=== PATIENT | female | born 1955 | race Caucasian/White ===

== ENCOUNTER 2024-05-03 12:11 | Inpatient (IN) | payer MEDICARE ==
--- NOTE | 2024-05-03 12:16 | ERPHSYRPT ---
- History of Present Illness Time Seen by Provider: 05/03/24 12:15 Source: patient, EMS, old records Physician History: This is a morbidly obese 68-year-old white female patient who was brought to the emergency department by the paramedics secondary to increased bilateral lower extremity swelling and shortness of breath. I reviewed the [facility] chart as well as received independent, additional medical history from the paramedics. Last week, patient received 1 round packed red blood cells transfused for low hemoglobin. The source of the patient's bleed is unknown at this time. 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 Review of patient's medication list states the patient is on aspirin but I do not see anticoagulation therapy. I did review the CBC lab results dated 04/28/2024. At that time her hemoglobin was 6.9. Since that time she has received 2 units packed red blood cells as an outpatient. Patient denies abdominal pain. Patient denies chest pain. Patient denies hematemesis. Patient denies bright red blood per rectum or dark tarry stools or hematochezia. Patient denies hematuria Timing/Duration: week(s) (1), worse Severity: moderate Modifying Factors: Improves With: nothing Associated Symptoms: shortness of breath, other (Complaint includes bilateral lower extremity swelling and shortness of breath), No cough, No chest pain, No fever Allergies/Adverse Reactions: acetaminophen [From Tylenol] Allergy (Verified 05/03/24 12:16) codeine Allergy (Verified 05/03/24 12:16) ibuprofen Allergy (Verified 05/03/24 12:16) Penicillins Allergy (Verified 05/03/24 12:16) Sulfa (Sulfonamide Antibiotics) Allergy (Verified 05/03/24 12:16) Home Medications: Albuterol 2.5 mg/3 ml Neb [Proventil 2.5 mg/3 ml Neb] 2.5 mg IH Q2H PRN PRN 04/29/24 [History] Albuterol 2.5 mg/3 ml Neb [Proventil 2.5 mg/3 ml Neb] 2.5 mg IH Q6H PRN PRN 04/29/24 [History] Amiodarone HCl 200 mg [Cordarone 200 MG] 200 mg PO BID 04/29/24 [History] Aspirin 325 mg PO DAILY 04/29/24 [History] Atorvastatin Calcium 40 mg PO HS 04/29/24 [History] Diazepam [Valium] 2 mg PO BID 04/29/24 [History] Famotidine 20 mg PO BID 04/29/24 [History] Fluticasone/Salmeterol 230/21* [Advair Hfa 230/21 Mcg MDI] 2 puff IH BIDRT [History] Insulin Lispro [Humalog] 100 unit SQ UD 04/29/24 [History] Levothyroxine Sodium 100 Mcg [Synthroid 100 Mcg] 100 mcg PO DAILY 04/29/24 [History] Metoprolol Succinate 25 mg Xl* [Toprol-Xl 25MG Tablets] 25 mg PO DAILY 04/29/24 [History] Nitroglycerin 0.4 mg SL Q5MIN PRN MR X 3 PRN 04/29/24 [History] PANTOPRAZOLE 40 mg Tablet [Protonix 40MG Tablet] 40 mg PO QAM 04/29/24 [History] Sertraline HCl [Zoloft] 25 mg PO DAILY 04/29/24 [History] Sucralfate [Carafate] 1 gm PO ACHS 04/29/24 [History] Tiotropium [place] [Spiriva] 2.5 mg IH DAILY 04/29/24 [History] glucagon HCL [Glucagon Emergency Kit] 1 mg IM UD PRN 04/29/24 [History] Travel Risk - International Travel Have you traveled outside of the country in past 3 weeks: No - Emerging Infectious Disease Are you exhibiting symptoms associated with any current EIDs: No - Review of Systems Constitutional: No Symptoms Eyes: No Symptoms Ears, Nose, & Throat: No Symptoms Respiratory: Dyspnea Cardiac: No Symptoms Abdominal/Gastrointestinal: No Symptoms Genitourinary Symptoms: No Symptoms Musculoskeletal: No Symptoms Skin: No Symptoms Neurological: No Symptoms Psychological: No Symptoms Endocrine: No Symptoms Hematologic/Lymphatic: No Symptoms Immunological/Allergic: No Symptoms All Other Systems: Reviewed and Negative - Past Medical History Pertinent Past Medical History: Yes Neurological History: No Pertinent History ENT History: No Pertinent History Cardiac History: Arrhythmia, Congestive Heart Failure, High Cholesterol, Hypertension, Myocardial Infarction ([place]) Respiratory History: Asthma, COPD Endocrine Medical History: Diabetes Type II, Hypothyroidism Musculoskeletal History: Rheumatoid Arthritis GI Medical History: No Pertinent History, GERD History: No Pertinent History Psycho-Social History: Anxiety Female Reproductive Disorders: No Pertinent History Other Medical History: rheumatic fever - Past Surgical History Past Surgical History: Yes Neuro Surgical History: No Pertinent History Gastrointestinal: Cholecystectomy Genitourinary: No Pertinent History Musculoskeletal: Orthopedic Surgery, Other Female Surgical History: Section Other Surgical History: both feet, both hands and one knee - Social History Smoking Status: Former smoker Drug Use: none - Nursing Vital Signs Nursing Vital Signs: Initial Vital Signs Temperature 97.6 F 05/03/24 12:15 Pulse Rate 120 H 05/03/24 12:15 Respiratory Rate 24 05/03/24 12:15 Blood Pressure 125/81 05/03/24 12:15 O2 Sat by Pulse Oximetry 99 05/03/24 12:15 Pain Scale Pain Intensity 0 - Physical Exam General Appearance: mild distress, alert, anxiety, obese Eye Exam: PERRL/EOMI, eyes nml inspection Ears, Nose, Throat Exam: dry mucous membranes, other Neck Exam: normal inspection (Lips appear pale), non-tender, supple, full range of motion Respiratory Exam: crackles/rales (Bilateral lung rogers mild) Cardiovascular Exam: tachycardia Gastrointestinal/Abdomen Exam: soft, normal bowel sounds, No tenderness Pelvic Exam: not done Rectal Exam: not done Back Exam: normal inspection, normal range of motion, No CVA tenderness, No vertebral tenderness Extremity Exam: normal inspection, normal range of motion, pelvis stable Neurologic Exam: alert, oriented x 3, cooperative, entry manager II-XII nml as tested Skin Exam: normal color, warm, dry Lymphatic Exam: No adenopathy SpO2 Interpretation: normal O2 Delivery: Room Air - Course Nursing assessment & vital signs reviewed: Yes EKG Interpreted by Me: RATE ([id number]), Sinus Tach, NORMAL AXIS, NORMAL INTERVALS, NORMAL QRS, NORMAL ST-T, Other (QTc is 489. No comparison twelve-lead EKG available. I do not appreciate acute ischemia on this twelve-lead EKG.) Ordered Tests: Active Orders 24 hr Category Date Time Status Economic History Teacher STAT Care 05/03/24 12:24 Active EKG-ER Only STAT Care 05/03/24 12:23 Active IV Insertion STAT Care 05/03/24 12:23 Active Oxygen-ED Only Nasal Cannula 2 lpm Care 05/03/24 12:30 Active Pulse Oximetry (ED) STAT Care 05/03/24 12:23 Active CHEST 1 VIEW (PORTABLE) Stat Exams 05/03/24 12:24 Completed CBC W DIFF Stat Lab 05/03/24 12:23 Completed CMP Stat Lab 05/03/24 13:14 Completed MAGNESIUM Stat Lab 05/03/24 13:14 Completed NT PRO BNPII Stat Lab 05/03/24 13:14 Completed Occult Blood-Fecal Screen (Diagnostic) [OB-FECAL SCREEN Lab 05/03/24 Ordered ] Stat PROTIME WITH INR Stat Lab 05/03/24 13:14 Completed TROPONIN Q4H Lab 05/03/24 13:14 Completed TROPONIN Q4H Lab 05/03/24 16:30 Ordered TROPONIN Q4H Lab 05/03/24 20:30 Ordered Medication Summary Discontinued Medications Generic Name Dose Route Start Last Admin Trade Name Freq PRN Reason Stop Dose Admin Furosemide 40 mg 05/03/24 15:22 05/03/24 15:30 Furosemide 40 Mg/4 Ml Vial IV 05/03/24 15:23 40 mg STAT ONE Administration Furosemide Confirm 05/03/24 15:28 Furosemide 40 Mg/4 Ml Vial Administered 05/03/24 15:29 Dose 40 mg .ROUTE .STK-MED ONE Lab/Rad Data: Laboratory Result Diagrams 05/03/24 12:23 05/03/24 13:14 Laboratory Results 05/03/24 05/03/24 05/03/24 Range/Units 13:14 13:14 13:14 WBC (3.98-10.04) x10^3/uL RBC (3.93-5.22) x10^6/uL Hgb (11.2-15.7) g/dL Hct (34.1-44.9) % MCV (79.4-94.8) fL MCH (25.6-32.2) pg MCHC (32.2-35.5) g/dL RDW (11.7-14.4) % Plt Count (182-369) x10^3/uL MPV (9.4-12.3) fL Gran % (34.0-71.1) % Immature Gran % (Auto) (0.001-0.429) % Nucleat RBC Rel Count (0.00-0.2) % Eos # (Auto) (0.04-0.36) x10^3/uL Immature Gran # (Auto) (0.001-0.031) x10^3u/L Absolute Lymphs (auto) (1.18-3.74) x10^3/uL Absolute Monos (auto) (0.24-0.86) x10^3/uL Absolute Nucleated RBC (0.00-0.012) x10^3u/L Lymphocytes % (19.3-51.7) % Monocytes % (4.7-12.5) % Eosinophils % (0.7-5.8) % Basophils % (0.1-1.2) % Absolute Granulocytes (1.56-6.13) x10^3/uL Basophils # (0.01-0.08) x10^3/uL PT 11.2 (9.4-12.5) SECONDS INR 1.03 (0.8-3.0) Sodium 144 (135-145) mmol/L Potassium 3.7 (3.5-5.1) mmol/L Chloride 102 (98-107) mmol/L Carbon Dioxide 35 H (22-30) mmol/L Anion Gap 11.0 (5-15) MEQ/L BUN 21 H (7-17) mg/dL Creatinine 0.69 (0.52-1.04) mg/dL Estimated GFR 95.1 ML/MIN Glucose 92 (74-106) mg/dL Calcium 9.3 (8.4-10.2) mg/dL Magnesium 2.0 (1.6-2.3) mg/dL Total Bilirubin 0.40 (0.2-1.3) mg/dL AST 20 (14-36) U/L ALT 21 (0-35) U/L Alkaline Phosphatase 92 (38-126) U/L Troponin I < 0.012 (0.000-0.033) ng/mL NT-Pro-B Natriuret Pep 5030 (<300) pg/mL Serum Total Protein 6.2 L (6.3-8.2) g/dL Albumin 3.6 (3.5-5.0) g/dL Slides for Path Review 05/03/24 Range/Units 12:23 WBC 10.9 H (3.98-10.04) x10^3/uL RBC 3.13 L (3.93-5.22) x10^6/uL Hgb 7.9 L (11.2-15.7) g/dL Hct 27.3 L (34.1-44.9) % MCV 87.2 (79.4-94.8) fL MCH 25.2 L (25.6-32.2) pg MCHC 28.9 L (32.2-35.5) g/dL RDW 21.3 H (11.7-14.4) % Plt Count 382 H (182-369) x10^3/uL MPV 8.9 L (9.4-12.3) fL Gran % 86.1 H (34.0-71.1) % Immature Gran % (Auto) 0.5 H (0.001-0.429) % Nucleat RBC Rel Count 0.0 (0.00-0.2) % Eos # (Auto) 0.07 (0.04-0.36) x10^3/uL Immature Gran # (Auto) 0.05 H (0.001-0.031) x10^3u/L Absolute Lymphs (auto) 0.91 L (1.18-3.74) x10^3/uL Absolute Monos (auto) 0.39 (0.24-0.86) x10^3/uL Absolute Nucleated RBC 0.00 (0.00-0.012) x10^3u/L Lymphocytes % 8.4 L (19.3-51.7) % Monocytes % 3.6 L (4.7-12.5) % Eosinophils % 0.6 L (0.7-5.8) % Basophils % 0.8 (0.1-1.2) % Absolute Granulocytes 9.34 H (1.56-6.13) x10^3/uL Basophils # 0.09 H (0.01-0.08) x10^3/uL PT (9.4-12.5) SECONDS INR (0.8-3.0) Sodium (135-145) mmol/L Potassium (3.5-5.1) mmol/L Chloride (98-107) mmol/L Carbon Dioxide (22-30) mmol/L Anion Gap (5-15) MEQ/L BUN (7-17) mg/dL Creatinine (0.52-1.04) mg/dL Estimated GFR ML/MIN Glucose (74-106) mg/dL Calcium (8.4-10.2) mg/dL Magnesium (1.6-2.3) mg/dL Total Bilirubin (0.2-1.3) mg/dL AST (14-36) U/L ALT (0-35) U/L Alkaline Phosphatase (38-126) U/L Troponin I (0.000-0.033) ng/mL NT-Pro-B Natriuret Pep (<300) pg/mL Serum Total Protein (6.3-8.2) g/dL Albumin (3.5-5.0) g/dL Slides for Path Review YES - Progress Progress: re-examined Progress Note: 05/03/24 12:50 My medical decision making and the assignment of moderate to high complexity of this patient's medical issue today is based on review of the patient's past medical history, review of patient's [facility] records, review of patient's outpatient lab results from 5 days ago, review the patient's medication list, review of patient drug allergy list, history present illness and physical findings on examination. The workup in this patient includes placement of intravenous line, CBC, CMP, magnesium level, twelve-lead EKG, chest x-ray, BNP, troponin level, occult blood and stool test, PT/INR 05/03/24 12:52 Differential diagnosis includes but is not limited to hypoalbuminemia, anemia, renal disease, CHF, myocardial infarction, 05/03/24 15:28 I interpreted the patient's laboratory data results. Patient is anemic but her hemoglobin today is 7.9 compared to 6.9 on 04/28/2024. Patient has a significan tly elevated BNP of 5030. Patient's renal function is normal as is her troponin level. Chest x-ray was interpreted by radiologist and I reviewed the impression. Impression states cardiomegaly with vascular congestion and small bilateral pleural effusions and superimposed pneumonia cannot be excluded. 05/03/24 15:[address] Blake, our telehospitalist economic developer at this time. I reviewed th e patient history, presenting complaint, physical findings, results of the laboratory, radiographic and EKG studies. We will admit this patient into the hospital and provide this patient with diuresis and workup for the patient's anemia. Discussed with : Shirley Counseled pt/family regarding: lab results, diagnosis, rad results Medical Desision Making - Independent Historian Additional History obtained from: [facility] nurse, Otolaryngology Rep/EMT - Discussion of managment Care discussed with:: hospitalist Reviewed:: Test results, Need for additional workup Agreed on:: decision to admit Will see patient: in hospital - Diagnostic Testing Diagnostic test were ordered, analyzed, and reviewed by me: Yes Radiological Interpretation: Reviewed by me, Teleradiologist Report - Risk of complications The pt has a high risk of morbidity or mortality based on: Decision regarding hospitilization or escalation of hosp level of care - Departure Departure Disposition: In-patient Admission Clinical Impression: CHF exacerbation, Anemia Condition: Fair Critical Care Time: No Referrals: ENVIVE,ENVIVE [Primary Care Provider] - Follow up/PCP as directed Instructions: Heart Failure
[2024-05-03 13:20] LABS: Absolute Neutrophil Ct (ANC) 9.34 x10^3/uL (1.56-6.13); BASOPHIL % 0.8 % (0.1-1.2); Basophil (Absolute #) 0.09 x10^3/uL (0.01-0.08); Eosinophil % 0.6 % (0.7-5.8); Eosinophil (Absolute #) 0.07 x10^3/uL (0.04-0.36); Hematocrit 27.3 % (34.1-44.9); Hemoglobin 7.9 g/dL (11.2-15.7); IMMATURE GRAN # 0.05 x10^3u/L (0.001-0.031); IMMATURE GRAN % 0.5 % (0.001-0.429); Lymphocyte (Absolute #) 0.91 x10^3/uL (1.18-3.74); Lymphocytes % 8.4 % (19.3-51.7); Mean Cell Volume 87.2 fL (79.4-94.8); Mean Corpuscular Hemoglobin 25.2 pg (25.6-32.2); Mean Corpuscular Hgb Concent. 28.9 g/dL (32.2-35.5); Mean Platelet Volume 8.9 fL (9.4-12.3); Monocyte (Absolute #) 0.39 x10^3/uL (0.24-0.86); Monocytes % 3.6 % (4.7-12.5); Neutrophil % 86.1 % (34.0-71.1); Platelet Count 382 x10^3/uL (182-369); Red Blood Count 3.13 x10^6/uL (3.93-5.22); Red Cell Distribution Width 21.3 % (11.7-14.4); White Blood Count 10.9 x10^3/uL (3.98-10.04)
--- NOTE | 2024-05-03 13:20 | XRAY ---
Indication: Short of breath. Comparison: None Portable chest demonstrates cardiomegaly, vascular congestion, and small bibasilar effusions/atelectasis favoring cardiac decompensation/CHF. Superimposed pneumonia not completely excluded. Bony thorax intact.
[2024-05-03 13:34] LABS: INR 1.03 (0.8-3.0); PROTIME 11.2 SECONDS (9.4-12.5)
[2024-05-03 13:40] LABS: Slide Review 1 YES
[2024-05-03 13:50] LABS: ALBUMIN 3.6 g/dL (3.5-5.0); BILIRUBIN,TOTAL 0.4 mg/dL (0.2-1.3); Calcium 9.3 mg/dL (8.4-10.2); Creatinine 1 0.69 mg/dL (0.52-1.04); EST GLOMERULAR FILTRATION RATE 95.1 ML/MIN; Potassium 3.7 mmol/L (3.5-5.1); Total Protein 6.2 g/dL (6.3-8.2)
[2024-05-03] MEDS ORDERED: Lasix 40 MG/4 ML ONE (15:28)
[2024-05-03] MEDS: Lasix 40 MG/4 ML IV ONE (15:30)
[2024-05-03] MEDS ORDERED: HUMULIN R SQ PRN ×2 (17:14→17:38)
[2024-05-03] MEDS ORDERED: Zofran 4 MG/2 ML VIAL IV PRN (17:14)
--- NOTE | 2024-05-03 17:33 | PCM.HP ---
History of Present Illness - Chief Complaint Chief Complaint: CHF, anemia Date: 05/03/24 History of Present Illness: is a 68 year old female with PMHX of oxygen dependent COPD (2 L oxygen via nasal cannula), obesity, hypothyroidism, insulin-dependent diabetes, hyperlipidemia, gastroesophageal reflux disease, anxiety issues, CHF, rheumatoid arthritis, morbid obesity, and arrhythmias. Today she was brought into the emergency department by the paramedics secondary to increased bilateral lower extremity swelling and shortness of breath. She reports her sxs have worsened over 48 hours but admits she has been like this for over a week. Last week, patient received 1 unit of packed red blood cells transfused for low hemoglobin OP. The source of the patient's low hgb is unknown at this time. Review of patient's medication list states the patient is on aspirin but no anticoagulation therapy. Lab results dated 04/28/2024- hemoglobin was 6.9. Since that time she has received 2 units packed red blood cells as an outpatient. She denies hematemesis, bright red blood per rectum, or dark tarry stools or hematochezia. She denies hematuria. In ER she received Lsix 40mg IV, humalog, and zofran. Will continue with IV lasix as she has +3 pitting edema. Echo o rdered She is on her baseline oxygen of 2LNC at 99%. Hgb is stable at 7.9 will continue to monitor. She continues to have some SOB. She denies Cp, Abd. pain, N/V/D. - Review of Systems Constitutional: No Fever, No Chills Eyes: No Symptoms Ears, Nose, & Throat: No Symptoms Respiratory: Short Of Breath, No Cough Cardiac: Edema (BLLE), No Chest Pain, No Syncope Abdominal/Gastrointestinal: No Abdominal Pain, No Nausea, No Vomiting, No Diarrhea Genitourinary Symptoms: No Dysuria Musculoskeletal: No Back Pain, No Neck Pain Skin: No Rash Neurological: No Dizziness, No Focal Weakness, No Sensory Changes Psychological: No Symptoms Endocrine: No Symptoms Hematologic/Lymphatic: No Symptoms Immunological/Allergic: No Symptoms Medications & Allergies Home Medications: Home Medication List Albuterol 2.5 mg/3 ml Neb [Proventil 2.5 mg/3 ml Neb] 2.5 mg IH Q2H PRN PRN 04/29/24 [History Confirmed 05/03/24] Albuterol 2.5 mg/3 ml Neb [Proventil 2.5 mg/3 ml Neb] 2.5 mg IH Q6H PRN PRN 04/29/24 [History Confirmed 05/03/24] Amiodarone HCl 200 mg [Cordarone 200 MG] 200 mg PO BID 04/29/24 [History Confirmed 05/03/24] Aspirin 325 mg PO DAILY 04/29/24 [History Confirmed 05/03/24] Atorvastatin Calcium 40 mg PO HS 04/29/24 [History Confirmed 05/03/24] Diazepam [Valium] 2 mg PO BID 04/29/24 [History Confirmed 05/03/24] Famotidine 20 mg PO BID 04/29/24 [History Confirmed 05/03/24] Fluticasone/Salmeterol 230/21* [Advair Hfa 230/21 Mcg MDI] 2 puff IH BIDRT 04/29/24 [History Confirmed 05/03/24] Insulin Lispro [Humalog] 100 unit SQ UD 04/29/24 [History Confirmed 05/03/24] Levothyroxine Sodium 100 Mcg [Synthroid 100 Mcg] 100 mcg PO DAILY 04/29/24 [History Confirmed 05/03/24] Metoprolol Succinate 25 mg Xl* [Toprol-Xl 25MG Tablets] 25 mg PO DAILY 04/29/24 [History Confirmed 05/03/24] Nitroglycerin 0.4 mg SL Q5MIN PRN MR X 3 PRN 04/29/24 [History Confirmed 05/03/24] PANTOPRAZOLE 40 mg Tablet [Protonix 40MG Tablet] 40 mg PO QAM 04/29/24 [History Confirmed 05/03/24] Sertraline HCl [Zoloft] 25 mg PO DAILY 04/29/24 [History Confirmed 05/03/24] Sucralfate [Carafate] 1 gm PO ACHS 04/29/24 [History Confirmed 05/03/24] Tiotropium [place] [Spiriva] 2.5 mg IH DAILY 04/29/24 [History Confirmed 05/03/24] glucagon HCL [Glucagon Emergency Kit] 1 mg IM UD PRN 04/29/24 [History Confirmed 05/03/24] Allergies/Adverse Reactions: Allergies Allergy/AdvReac Type Severity Reaction Status Date / Time acetaminophen [From Tylenol] Allergy Verified 05/03/24 12:16 codeine Allergy Verified 05/03/24 12:16 ibuprofen Allergy Verified 05/03/24 12:16 Penicillins Allergy Verified 05/03/24 12:16 Sulfa (Sulfonamide Allergy Verified 05/03/24 12:16 Antibiotics) - Past Medical History Past Medical History: Yes Neurological History: No Pertinent History ENT History: No Pertinent History Cardiac History: Arrhythmia, Congestive Heart Failure, High Cholesterol, Hypertension, Myocardial Infarction ([place]) Respiratory History: Asthma, COPD Endocrine Medical History: Diabetes Type II, Hypothyroidism Musculoskelatal History: Rheumatoid Arthritis GI Medical History: No Pertinent History, GERD History: No Pertinent History Pyscho-Social History: Anxiety Reproductive Disorders: No Pertinent History Comment: rheumatic fever - Past Surgical History Past Surgical History: Yes Neuro Surgical History: No Pertinent History GI Surgical History: Cholecystectomy Genitourinary Surgical Hx: No Pertinent History Musculskeletal Surgical Hx: Orthopedic Surgery, Other Female Surgical History: Section Other Surgical History: both feet, both hands and one knee - Social History Smoking Status: Former smoker Exposure to second hand smoke: No Alcohol: None Drug Use: none - Social Determinants of Health Will the patient participate in the screening: Yes Do you worry about a steady place to live?: No Do you have any problems with any of the following?: No known problems In the past 12 months,have you had to go without utilities?: No Have you or anyone in your house had to go without enough: No Transportation Issues: No Has anyone in your support network made you feel unsafe?: No - Physical Exam Vital Signs: Vital Signs - 24 hr Temp Pulse Resp BP BP Pulse Ox 05/03/24 16:00 128 H 35 H 129/89 78 L 05/03/24 15:33 117 H 22 145/88 99 05/03/24 15:30 117 H 21 100 05/03/24 15:20 117 H 20 05/03/24 15:10 117 H 18 93 L 05/03/24 15:00 117 H 14 100 05/03/24 14:50 116 H 16 98 05/03/24 14:40 117 H 17 98 05/03/24 14:30 117 H 18 99 05/03/24 14:20 117 H 17 99 05/03/24 14:10 118 H 19 99 05/03/24 14:00 120 H 17 99 05/03/24 13:50 119 H 19 99 05/03/24 13:40 119 H 17 100 05/03/24 13:30 119 H 19 100 05/03/24 13:20 119 H 17 05/03/24 13:10 118 H 22 93 L 05/03/24 13:00 120 H 19 100 05/03/24 12:50 121 H 19 99 05/03/24 12:49 120 H 23 100 05/03/24 12:31 99 05/03/24 12:15 97.6 F 120 H 24 125/81 99 General Appearance: no apparent distress, alert, obese Neurologic Exam: alert, oriented x 3, cooperative, normal mood/affect, nml cerebellar function, nml station & gait, sensation nml, No motor deficits Eye Exam: PERRL/EOMI, eyes nml inspection Ears, Nose, Throat Exam: normal ENT inspection, TMs normal, pharynx normal, moist mucous membranes Neck Exam: normal inspection, non-tender, supple, full range of motion Respiratory Exam: wheezing, No respiratory distress Cardiovascular Exam: regular rate/rhythm, normal heart sounds, normal peripheral pulses, tachycardia, edema (BLLE, + 3 pitting) Gastrointestinal/Abdomen Exam: soft, normal bowel sounds, No tenderness, No mass Back Exam: normal inspection, normal range of motion, No CVA tenderness, No vertebral tenderness Extremity Exam: normal inspection, normal range of motion, pelvis stable Skin Exam: normal color, warm, dry, No rash Lymphatic Exam: No adenopathy Results - Labs Lab/Micro Results: Lab Results-Last 24 Hours 05/03/24 05/03/24 05/03/24 Range/Units 12:23 13:14 13:14 WBC 10.9 H (3.98-10.04) x10^3/uL RBC 3.13 L (3.93-5.22) x10^6/uL Hgb 7.9 L (11.2-15.7) g/dL Hct 27.3 L (34.1-44.9) % MCV 87.2 (79.4-94.8) fL MCH 25.2 L (25.6-32.2) pg MCHC 28.9 L (32.2-35.5) g/dL RDW 21.3 H (11.7-14.4) % Plt Count 382 H (182-369) x10^3/uL MPV 8.9 L (9.4-12.3) fL Gran % 86.1 H (34.0-71.1) % Immature Gran % (Auto) 0.5 H (0.001-0.429) % Nucleat RBC Rel Count 0.0 (0.00-0.2) % Eos # (Auto) 0.07 (0.04-0.36) x10^3/uL Immature Gran # (Auto) 0.05 H (0.001-0.031) x10^3u/L Absolute Lymphs (auto) 0.91 L (1.18-3.74) x10^3/uL Absolute Monos (auto) 0.39 (0.24-0.86) x10^3/uL Absolute Nucleated RBC 0.00 (0.00-0.012) x10^3u/L Lymphocytes % 8.4 L (19.3-51.7) % Monocytes % 3.6 L (4.7-12.5) % Eosinophils % 0.6 L (0.7-5.8) % Basophils % 0.8 (0.1-1.2) % Absolute Granulocytes 9.34 H (1.56-6.13) x10^3/uL Basophils # 0.09 H (0.01-0.08) x10^3/uL PT 11.2 (9.4-12.5) SECONDS INR 1.03 (0.8-3.0) Sodium 144 (135-145) mmol/L Potassium 3.7 (3.5-5.1) mmol/L Chloride 102 (98-107) mmol/L Carbon Dioxide 35 H (22-30) mmol/L Anion Gap 11.0 (5-15) MEQ/L BUN 21 H (7-17) mg/dL Creatinine 0.69 (0.52-1.04) mg/dL Estimated GFR 95.1 ML/MIN Glucose 92 (74-106) mg/dL Calcium 9.3 (8.4-10.2) mg/dL Magnesium 2.0 (1.6-2.3) mg/dL Total Bilirubin 0.40 (0.2-1.3) mg/dL AST 20 (14-36) U/L ALT 21 (0-35) U/L Alkaline Phosphatase 92 (38-126) U/L Troponin I (0.000-0.033) ng/mL NT-Pro-B Natriuret Pep 5030 (<300) pg/mL Serum Total Protein 6.2 L (6.3-8.2) g/dL Albumin 3.6 (3.5-5.0) g/dL Slides for Path Review YES 05/03/24 05/03/24 Range/Units 13:14 16:25 WBC (3.98-10.04) x10^3/uL RBC (3.93-5.22) x10^6/uL Hgb (11.2-15.7) g/dL Hct (34.1-44.9) % MCV (79.4-94.8) fL MCH (25.6-32.2) pg MCHC (32.2-35.5) g/dL RDW (11.7-14.4) % Plt Count (182-369) x10^3/uL MPV (9.4-12.3) fL Gran % (34.0-71.1) % Immature Gran % (Auto) (0.001-0.429) % Nucleat RBC Rel Count (0.00-0.2) % Eos # (Auto) (0.04-0.36) x10^3/uL Immature Gran # (Auto) (0.001-0.031) x10^3u/L Absolute Lymphs (auto) (1.18-3.74) x10^3/uL Absolute Monos (auto) (0.24-0.86) x10^3/uL Absolute Nucleated RBC (0.00-0.012) x10^3u/L Lymphocytes % (19.3-51.7) % Monocytes % (4.7-12.5) % Eosinophils % (0.7-5.8) % Basophils % (0.1-1.2) % Absolute Granulocytes (1.56-6.13) x10^3/uL Basophils # (0.01-0.08) x10^3/uL PT (9.4-12.5) SECONDS INR (0.8-3.0) Sodium (135-145) mmol/L Potassium (3.5-5.1) mmol/L Chloride (98-107) mmol/L Carbon Dioxide (22-30) mmol/L Anion Gap (5-15) MEQ/L BUN (7-17) mg/dL Creatinine (0.52-1.04) mg/dL Estimated GFR ML/MIN Glucose (74-106) mg/dL Calcium (8.4-10.2) mg/dL Magnesium (1.6-2.3) mg/dL Total Bilirubin (0.2-1.3) mg/dL AST (14-36) U/L ALT (0-35) U/L Alkaline Phosphatase (38-126) U/L Troponin I < 0.012 < 0.012 (0.000-0.033) ng/mL NT-Pro-B Natriuret Pep (<300) pg/mL Serum Total Protein (6.3-8.2) g/dL Albumin (3.5-5.0) g/dL Slides for Path Review - Radiology Impressions Radiology Exams & Impressions: Radiology Procedures Category Date Time Status CHEST 1 VIEW (PORTABLE) Stat Exams 05/03/24 12:24 Completed - Other Procedures and Tests Respiratory Therapy 05/03/24 17:14 EKG REPEAT IN AM Oxygen Nasal Cannula 2 lpm Respiratory Therapy Consult ONCE Assessment/Plan (1) CHF exacerbation Current Visit: Yes Status: Acute Assessment & Plan: - Continue Lasix IV daily - Echo - EKG - Tele - on baseline O2 2lNC - daily weight - I&O's - Trop x3- trend, so far x2 negative - TSH - BNP 5030 - cardiology consult - elevate legs - consider TEDS - CXR: Portable chest demonstrates cardiomegaly, vascular congestion, and small bibasilar effusions/atelectasis favoring cardiac decompensation/CHF. Superimposed pneumonia not completely excluded. Bony thorax intact. Code(s): I50.9 - HEART FAILURE, UNSPECIFIED (2) Diabetes mellitus Current Visit: Yes Status: Acute Qualifiers: Diabetes mellitus type: type 2 Diabetes mellitus bilingual sales representative insulin use: with bilingual sales representative use Assessment & Plan: - A1C pending - accuchecks ac/hs - Humalog s/s Code(s): E11.9 - TYPE 2 DIABETES MELLITUS WITHOUT COMPLICATIONS (3) Anemia Current Visit: Yes Status: Acute Assessment & Plan: - Hgb 7.9 trend - anemia panel - Consider surgical consult for egd/ colonoscopy Code(s): D64.9 - ANEMIA, UNSPECIFIED (4) Morbid obesity with BMI of 40.0-44.9, adult Current Visit: Yes Status: Acute Assessment & Plan: - advised ADA diet and exercise control per cardiology recs Code(s): E66.01 - MORBID (SEVERE) OBESITY DUE TO EXCESS CALORIES; Z68.41 - BODY MASS INDEX [BMI] 40.0-44.9, ADULT (5) HTN (hypertension) Current Visit: Yes Status: Acute Assessment & Plan: - Continue beta charles - hold amiodarone d/t edema - BP stable- monitor Code(s): I10 - ESSENTIAL (PRIMARY) HYPERTENSION (6) Tachycardia Current Visit: Yes Status: Acute Assessment & Plan: - tele - 2;2 CHF exacerbation Code(s): R00.0 - TACHYCARDIA, UNSPECIFIED (7) Hypothyroidism Current Visit: Yes Status: Acute Assessment & Plan: - TSH - Continue Synthroid VTE: Lovenox PPI: Protonix Next of KIN: Paula Juarez [phone] D/C plan: 2-3 days Code status: Full Code(s): E03.9 - HYPOTHYROIDISM, UNSPECIFIED
[2024-05-03 18:05] LABS: Iron 34 ug/dL (37-170); Iron Saturation 9 % (20-39); TIBC 393 ug/dL (265-462)
[2024-05-03] MEDS ORDERED: DUONEB 0.5-3 MG/3 ml Neb IH ONE (18:35)
[2024-05-03] MEDS: DUONEB 0.5-3 MG/3 ml Neb IH SCH (18:39)
[2024-05-03] MEDS: Advair Hfa 230/21 Mcg COMMON CANISTER IH SCH (18:41)
[2024-05-03] MEDS: W ADAP IH SCH (18:44)
[2024-05-03] MEDS: FLUTICASONE IH SCH (18:44)
[2024-05-03] MEDS: SALMETEROL IH SCH (18:44)
[2024-05-03 19:04] LABS: Ferritin 43.6 ng/mL (11.1-264); Folate (Folic Acid) > 16.6 ng/mL (2.76 - >20); Vitamin B12 480 pg/mL (239-931)
[2024-05-03] MEDS: Pepcid 20 MG PO SCH (22:47)
[2024-05-03] MEDS: ZOCOR 20MG PO SCH (22:47)
[2024-05-04] MEDS: LIPITOR 40MG PO SCH (00:52)
[2024-05-04] MEDS: NON-FORMULARY ITEM (Diazepam [Valium] 2 MG Tablet) PO SCH (00:52)
[2024-05-04] MEDS ORDERED: NORCO 5/325 MG PO PRN (02:28)
[2024-05-04] MEDS: TYLENOL 325 MG PO PRN (02:31)
[2024-05-04 05:15] LABS: Absolute Neutrophil Ct (ANC) 6.58 x10^3/uL (1.56-6.13); Basophil (Absolute #) 0.08 x10^3/uL (0.01-0.08); Eosinophil % 1.3 % (0.7-5.8); Hematocrit 27.4 % (34.1-44.9); Hemoglobin 7.7 g/dL (11.2-15.7); IMMATURE GRAN # 0.03 x10^3u/L (0.001-0.031); IMMATURE GRAN % 0.4 % (0.001-0.429); Lymphocyte (Absolute #) 0.84 x10^3/uL (1.18-3.74); Lymphocytes % 10.5 % (19.3-51.7); Mean Cell Volume 88.7 fL (79.4-94.8); Mean Corpuscular Hemoglobin 24.9 pg (25.6-32.2); Mean Corpuscular Hgb Concent. 28.1 g/dL (32.2-35.5); Mean Platelet Volume 9.3 fL (9.4-12.3); Monocyte (Absolute #) 0.34 x10^3/uL (0.24-0.86); Monocytes % 4.3 % (4.7-12.5); NUCLEATED RBC # 0.02 x10^3u/L (0.00-0.012); NUCLEATED RBC % 0.3 % (0.00-0.2); Neutrophil % 82.5 % (34.0-71.1); Platelet Count 391 x10^3/uL (182-369); Red Blood Count 3.09 x10^6/uL (3.93-5.22); Red Cell Distribution Width 21.4 % (11.7-14.4)
[2024-05-04 05:39] LABS: ALBUMIN 3.3 g/dL (3.5-5.0); ANION GAP 7.2 MEQ/L (5-15); BILIRUBIN,TOTAL 0.4 mg/dL (0.2-1.3); Calcium 8.8 mg/dL (8.4-10.2); Creatinine 1 0.75 mg/dL (0.52-1.04); EST GLOMERULAR FILTRATION RATE 87.2 ML/MIN; Potassium 3.6 mmol/L (3.5-5.1); Total Protein 5.7 g/dL (6.3-8.2)
[2024-05-04 06:59] LABS: Slide Review 1 YES
[2024-05-04] MEDS: Carafate 1 GM PO SCH (07:11)
--- NOTE | 2024-05-04 09:56 | PCM.NOTE ---
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 Today she was brought into the emergency department by the paramedics secondary to increased bilateral lower extremity swelling and shortness of breath. She reports her sxs have worsened over 48 hours but admits she has been like this for over a week. Last week, patient received 1 unit of packed red blood cells transfused for low hemoglobin OP. The source of the patient's low hgb is unknown at this time. Review of patient's medication list states the patient is on aspirin but no anticoagulation therapy. Lab results dated 04/28/2024- hemoglobin was 6.9. Since that time she has received 2 units packed red blood cells as an outpatient. She denies hematemesis, bright red blood per rectum, or dark tarry stools or hematochezia. She denies hematuria. In ER she received Lsix 40mg IV, humalog, and zofran. Will continue with IV lasix as she has +3 pitting edema. Echo ordered She is on her baseline oxygen of 2LNC at 99%. Hgb is stable at 7.9 will continue to monitor. She continues to have some SOB. She denies Cp, Abd. pain, N/V/D. 05/04/24 Pt resting in the bed. Edema in BLLE has improved somewhat. PT to eval for weakness and for UNNA boots. TSH is elevated and she reports she has not had her meds changed or labs to check this in quite some time. She states she has been taking her synthroid as she has been in [facility] for rehab. Synthroid increased. Lung sounds and SOB has improved. She is on baseline 2lNC at 98%. Hgb is stable at 7.7. She is scheduled for an Echo today. Pt didn't have Valium last night as we do not carry the dose of medication she takes. She slept fine last night per nursing staff. Awaiting cardiology consult recs. Echo scheduled for today. Plan at d/c when sxs improved is to go back to rehab. She denies CP, SOB, abd. pain, N/V/D. - Review of Systems Constitutional: Weakness, No Fever, No Chills Eyes: No Symptoms Ears, Nose, & Throat: No Symptoms Respiratory: No Cough, No Short Of Breath Cardiac: Edema (BLLE), No Chest Pain, No Syncope Abdominal/Gastrointestinal: No Abdominal Pain, No Nausea, No Vomiting, No D iarrhea Genitourinary Symptoms: No Dysuria Musculoskeletal: No Back Pain, No Neck Pain Skin: No Rash Neurological: No Dizziness, No Focal Weakness, No Sensory Changes Psychological: No Symptoms Endocrine: No Symptoms Hematologic/Lymphatic: No Symptoms Immunological/Allergic: No Symptoms Objective Exam General Appearance: no apparent distress, alert, obese Neurologic Exam: alert, oriented x 3, cooperative, normal mood/affect, nml cerebellar function, sensation nml, No motor deficits Skin Exam: normal color, warm, dry Eye Exam: PERRL, EOMI, eyes nml inspection Ears, Nose, Throat Exam: normal ENT inspection, pharynx normal, moist mucous membranes Neck Exam: normal inspection, non-tender, supple, full range of motion Respiratory Exam: normal breath sounds, lungs clear, No respiratory distress Cardiovascular Exam: regular rate/rhythm, normal heart sounds, tachycardia, edema (+3 pitting edema BLLE) Gastrointestinal/Abdomen Exam: soft, No tenderness, No mass Extremity Exam: normal inspection, normal range of motion Back Exam: normal inspection, normal range of motion, No CVA tenderness, No vertebral tenderness Pelvic Exam: deferred Rectal Exam: deferred Objective Data Vital Signs: Vital Signs - 24 hr Temp Pulse Resp BP BP Pulse Ox 05/04/24 07:57 97.5 F 120 H 20 125/57 96 05/04/24 07:19 120 H 18 98 05/04/24 04:00 97.5 F 113 H 22 87/54 98 05/03/24 23:46 97.1 F 115 H 22 108/56 96 05/03/24 20:00 97.8 F 118 H 20 102/55 98 05/03/24 19:21 119 H 16 97 05/03/24 17:46 121 H 26 H 97 05/03/24 17:15 96.9 F 121 H 26 H 147/90 97 05/03/24 16:00 128 H 35 H 129/89 78 L 05/03/24 15:33 117 H 22 145/88 99 05/03/24 15:30 117 H 21 100 05/03/24 15:20 117 H 20 05/03/24 15:10 117 H 18 93 L 05/03/24 15:00 117 H 14 100 05/03/24 14:50 116 H 16 98 05/03/24 14:40 117 H 17 98 05/03/24 14:30 117 H 18 99 05/03/24 14:20 117 H 17 99 05/03/24 14:10 118 H 19 99 05/03/24 14:00 120 H 17 99 05/03/24 13:50 119 H 19 99 05/03/24 13:40 119 H 17 100 05/03/24 13:30 119 H 19 100 05/03/24 13:20 119 H 17 05/03/24 13:10 118 H 22 93 L 05/03/24 13:00 120 H 19 100 05/03/24 12:50 121 H 19 99 05/03/24 12:49 120 H 23 05/03/24 12:31 99 05/03/24 12:15 97.6 F 120 H 24 125/81 99 Pain Assessment - Last Documented Pain Intensity 2 Pain Scale Used 0-10 Pain Scale Intake and Output: Intake & Output 05/01/24 05/02/24 05/03/24 05/04/24 11:59 11:59 11:59 11:59 Intake Total 420 Output Total 1600 Balance -1180 Weight 101.3 kg Lab Results: Lab Results-Last 24 Hours 05/03/24 05/03/24 05/03/24 Range/Units 12:23 13:14 13:14 WBC 10.9 H (3.98-10.04) x10^3/uL RBC 3.13 L (3.93-5.22) x10^6/uL Hgb 7.9 L (11.2-15.7) g/dL Hct 27.3 L (34.1-44.9) % MCV 87.2 (79.4-94.8) fL MCH 25.2 L (25.6-32.2) pg MCHC 28.9 L (32.2-35.5) g/dL RDW 21.3 H (11.7-14.4) % Plt Count 382 H (182-369) x10^3/uL MPV 8.9 L (9.4-12.3) fL Gran % 86.1 H (34.0-71.1) % Immature Gran % (Auto) 0.5 H (0.001-0.429) % Nucleat RBC Rel Count 0.0 (0.00-0.2) % Eos # (Auto) 0.07 (0.04-0.36) x10^3/uL Immature Gran # (Auto) 0.05 H (0.001-0.031) x10^3u/L Absolute Lymphs (auto) 0.91 L (1.18-3.74) x10^3/uL Absolute Monos (auto) 0.39 (0.24-0.86) x10^3/uL Absolute Nucleated RBC 0.00 (0.00-0.012) x10^3u/L Lymphocytes % 8.4 L (19.3-51.7) % Monocytes % 3.6 L (4.7-12.5) % Eosinophils % 0.6 L (0.7-5.8) % Basophils % 0.8 (0.1-1.2) % Absolute Granulocytes 9.34 H (1.56-6.13) x10^3/uL Basophils # 0.09 H (0.01-0.08) x10^3/uL PT 11.2 (9.4-12.5) SECONDS INR 1.03 (0.8-3.0) Sodium 144 (135-145) mmol/L Potassium 3.7 (3.5-5.1) mmol/L Chloride 102 (98-107) mmol/L Carbon Dioxide 35 H (22-30) mmol/L Anion Gap 11.0 (5-15) MEQ/L BUN 21 H (7-17) mg/dL Creatinine 0.69 (0.52-1.04) mg/dL Estimated GFR 95.1 ML/MIN Glucose 92 (74-106) mg/dL POC Glucometer (74 to 106) mg/dL Hemoglobin A1c (4.5-6.0) % Calcium 9.3 (8.4-10.2) mg/dL Magnesium 2.0 (1.6-2.3) mg/dL Iron (37-170) ug/dL TIBC (265-462) ug/dL Iron Saturation (20-39) % Ferritin (11.1-264) ng/mL Total Bilirubin 0.40 (0.2-1.3) mg/dL AST 20 (14-36) U/L ALT 21 (0-35) U/L Alkaline Phosphatase 92 (38-126) U/L Troponin I (0.000-0.033) ng/mL NT-Pro-B Natriuret Pep 5030 (<300) pg/mL Serum Total Protein 6.2 L (6.3-8.2) g/dL Albumin 3.6 (3.5-5.0) g/dL Vitamin B12 (239-931) pg/mL Folic Acid (2.76 - >20) ng/mL TSH 3rd Generation (0.470-4.680) mIU/L Slides for Path Review YES 05/03/24 05/03/24 05/03/24 Range/Units 13:14 16:25 17:52 WBC (3.98-10.04) x10^3/uL RBC (3.93-5.22) x10^6/uL Hgb (11.2-15.7) g/dL Hct (34.1-44.9) % MCV (79.4-94.8) fL MCH (25.6-32.2) pg MCHC (32.2-35.5) g/dL RDW (11.7-14.4) % Plt Count (182-369) x10^3/uL MPV (9.4-12.3) fL Gran % (34.0-71.1) % Immature Gran % (Auto) (0.001-0.429) % Nucleat RBC Rel Count (0.00-0.2) % Eos # (Auto) (0.04-0.36) x10^3/uL Immature Gran # (Auto) (0.001-0.031) x10^3u/L Absolute Lymphs (auto) (1.18-3.74) x10^3/uL Absolute Monos (auto) (0.24-0.86) x10^3/uL Absolute Nucleated RBC (0.00-0.012) x10^3u/L Lymphocytes % (19.3-51.7) % Monocytes % (4.7-12.5) % Eosinophils % (0.7-5.8) % Basophils % (0.1-1.2) % Absolute Granulocytes (1.56-6.13) x10^3/uL Basophils # (0.01-0.08) x10^3/uL PT (9.4-12.5) SECONDS INR (0.8-3.0) Sodium (135-145) mmol/L Potassium (3.5-5.1) mmol/L Chloride (98-107) mmol/L Carbon Dioxide (22-30) mmol/L Anion Gap (5-15) MEQ/L BUN (7-17) mg/dL Creatinine (0.52-1.04) mg/dL Estimated GFR ML/MIN Glucose (74-106) mg/dL POC Glucometer (74 to 106) mg/dL Hemoglobin A1c 6.08 H (4.5-6.0) % Calcium (8.4-10.2) mg/dL Magnesium (1.6-2.3) mg/dL Iron (37-170) ug/dL TIBC (265-462) ug/dL Iron Saturation (20-39) % Ferritin (11.1-264) ng/mL Total Bilirubin (0.2-1.3) mg/dL AST (14-36) U/L ALT (0-35) U/L Alkaline Phosphatase (38-126) U/L Troponin I < 0.012 < 0.012 (0.000-0.033) ng/mL NT-Pro-B Natriuret Pep (<300) pg/mL Serum Total Protein (6.3-8.2) g/dL Albumin (3.5-5.0) g/dL Vitamin B12 (239-931) pg/mL Folic Acid (2.76 - >20) ng/mL TSH 3rd Generation (0.470-4.680) mIU/L Slides for Path Review 05/03/24 05/03/24 05/03/24 Range/Units 20:55 21:57 Unknown WBC (3.98-10.04) x10^3/uL RBC (3.93-5.22) x10^6/uL Hgb (11.2-15.7) g/dL Hct (34.1-44.9) % MCV (79.4-94.8) fL MCH (25.6-32.2) pg MCHC (32.2-35.5) g/dL RDW (11.7-14.4) % Plt Count (182-369) x10^3/uL MPV (9.4-12.3) fL Gran % (34.0-71.1) % Immature Gran % (Auto) (0.001-0.429) % Nucleat RBC Rel Count (0.00-0.2) % Eos # (Auto) (0.04-0.36) x10^3/uL Immature Gran # (Auto) (0.001-0.031) x10^3u/L Absolute Lymphs (auto) (1.18-3.74) x10^3/uL Absolute Monos (auto) (0.24-0.86) x10^3/uL Absolute Nucleated RBC (0.00-0.012) x10^3u/L Lymphocytes % (19.3-51.7) % Monocytes % (4.7-12.5) % Eosinophils % (0.7-5.8) % Basophils % (0.1-1.2) % Absolute Granulocytes (1.56-6.13) x10^3/uL Basophils # (0.01-0.08) x10^3/uL PT (9.4-12.5) SECONDS INR (0.8-3.0) Sodium (135-145) mmol/L Potassium (3.5-5.1) mmol/L Chloride (98-107) mmol/L Carbon Dioxide (22-30) mmol/L Anion Gap (5-15) MEQ/L BUN (7-17) mg/dL Creatinine (0.52-1.04) mg/dL Estimated GFR ML/MIN Glucose (74-106) mg/dL POC Glucometer 105 (74 to 106) mg/dL Hemoglobin A1c (4.5-6.0) % Calcium (8.4-10.2) mg/dL Magnesium (1.6-2.3) mg/dL Iron (37-170) ug/dL TIBC (265-462) ug/dL Iron Saturation (20-39) % Ferritin 43.6 (11.1-264) ng/mL Total Bilirubin (0.2-1.3) mg/dL AST (14-36) U/L ALT (0-35) U/L Alkaline Phosphatase (38-126) U/L Troponin I < 0.012 (0.000-0.033) ng/mL NT-Pro-B Natriuret Pep (<300) pg/mL Serum Total Protein (6.3-8.2) g/dL Albumin (3.5-5.0) g/dL Vitamin B12 480 (239-931) pg/mL Folic Acid > 16.6 (2.76 - >20) ng/mL TSH 3rd Generation (0.470-4.680) mIU/L Slides for Path Review 05/03/24 05/04/24 05/04/24 Range/Units Unknown 04:14 04:14 WBC 8.0 (3.98-10.04) x10^3/uL RBC 3.09 L (3.93-5.22) x10^6/uL Hgb 7.7 L (11.2-15.7) g/dL Hct 27.4 L (34.1-44.9) % MCV 88.7 (79.4-94.8) fL MCH 24.9 L (25.6-32.2) pg MCHC 28.1 L (32.2-35.5) g/dL RDW 21.4 H (11.7-14.4) % Plt Count 391 H (182-369) x10^3/uL MPV 9.3 L (9.4-12.3) fL Gran % 82.5 H (34.0-71.1) % Immature Gran % (Auto) 0.4 (0.001-0.429) % Nucleat RBC Rel Count 0.3 H (0.00-0.2) % Eos # (Auto) 0.10 (0.04-0.36) x10^3/uL Immature Gran # (Auto) 0.03 (0.001-0.031) x10^3u/L Absolute Lymphs (auto) 0.84 L (1.18-3.74) x10^3/uL Absolute Monos (auto) 0.34 (0.24-0.86) x10^3/uL Absolute Nucleated RBC 0.02 H (0.00-0.012) x10^3u/L Lymphocytes % 10.5 L (19.3-51.7) % Monocytes % 4.3 L (4.7-12.5) % Eosinophils % 1.3 (0.7-5.8) % Basophils % 1.0 (0.1-1.2) % Absolute Granulocytes 6.58 H (1.56-6.13) x10^3/uL Basophils # 0.08 (0.01-0.08) x10^3/uL PT (9.4-12.5) SECONDS INR (0.8-3.0) Sodium 141 (135-145) mmol/L Potassium 3.6 (3.5-5.1) mmol/L Chloride 100 (98-107) mmol/L Carbon Dioxide 37 H (22-30) mmol/L Anion Gap 7.2 (5-15) MEQ/L BUN 20 H (7-17) mg/dL Creatinine 0.75 (0.52-1.04) mg/dL Estimated GFR 87.2 ML/MIN Glucose 98 (74-106) mg/dL POC Glucometer (74 to 106) mg/dL Hemoglobin A1c (4.5-6.0) % Calcium 8.8 (8.4-10.2) mg/dL Magnesium (1.6-2.3) mg/dL Iron 34 L (37-170) ug/dL TIBC 393 (265-462) ug/dL Iron Saturation 9 L (20-39) % Ferritin (11.1-264) ng/mL Total Bilirubin 0.40 (0.2-1.3) mg/dL AST 23 (14-36) U/L ALT 18 (0-35) U/L Alkaline Phosphatase 81 (38-126) U/L Troponin I (0.000-0.033) ng/mL NT-Pro-B Natriuret Pep 4890 (<300) pg/mL Serum Total Protein 5.7 L (6.3-8.2) g/dL Albumin 3.3 L (3.5-5.0) g/dL Vitamin B12 (239-931) pg/mL Folic Acid (2.76 - >20) ng/mL TSH 3rd Generation (0.470-4.680) mIU/L Slides for Path Review YES 06/18/24 06/18/24 Range/Units 04:14 07:24 WBC (3.98-10.04) x10^3/uL RBC (3.93-5.22) x10^6/uL Hgb (11.2-15.7) g/dL Hct (34.1-44.9) % MCV (79.4-94.8) fL MCH (25.6-32.2) pg MCHC (32.2-35.5) g/dL RDW (11.7-14.4) % Plt Count (182-369) x10^3/uL MPV (9.4-12.3) fL Gran % (34.0-71.1) % Immature Gran % (Auto) (0.001-0.429) % Nucleat RBC Rel Count (0.00-0.2) % Eos # (Auto) (0.04-0.36) x10^3/uL Immature Gran # (Auto) (0.001-0.031) x10^3u/L Absolute Lymphs (auto) (1.18-3.74) x10^3/uL Absolute Monos (auto) (0.24-0.86) x10^3/uL Absolute Nucleated RBC (0.00-0.012) x10^3u/L Lymphocytes % (19.3-51.7) % Monocytes % (4.7-12.5) % Eosinophils % (0.7-5.8) % Basophils % (0.1-1.2) % Absolute Granulocytes (1.56-6.13) x10^3/uL Basophils # (0.01-0.08) x10^3/uL PT (9.4-12.5) SECONDS INR (0.8-3.0) Sodium (135-145) mmol/L Potassium (3.5-5.1) mmol/L Chloride (98-107) mmol/L Carbon Dioxide (22-30) mmol/L Anion Gap (5-15) MEQ/L BUN (7-17) mg/dL Creatinine (0.52-1.04) mg/dL Estimated GFR ML/MIN Glucose (74-106) mg/dL POC Glucometer 79 (74 to 106) mg/dL Hemoglobin A1c (4.5-6.0) % Calcium (8.4-10.2) mg/dL Magnesium (1.6-2.3) mg/dL Iron (37-170) ug/dL TIBC (265-462) ug/dL Iron Saturation (20-39) % Ferritin (11.1-264) ng/mL Total Bilirubin (0.2-1.3) mg/dL AST (14-36) U/L ALT (0-35) U/L Alkaline Phosphatase (38-126) U/L Troponin I (0.000-0.033) ng/mL NT-Pro-B Natriuret Pep (<300) pg/mL Serum Total Protein (6.3-8.2) g/dL Albumin (3.5-5.0) g/dL Vitamin B12 (239-931) pg/mL Folic Acid (2.76 - >20) ng/mL TSH 3rd Generation 10.019 H (0.470-4.680) mIU/L Slides for Path Review Radiology Exams: Radiology Procedures Category Date Time Status CHEST 1 VIEW (PORTABLE) Stat Exams 05/03/24 12:24 Completed ECHO W/2D AND DOPPLER [US] Routine Exams 05/04/24 17:29 Ordered Assessment/Plan (1) CHF exacerbation Current Visit: Yes Status: Acute Code(s): I50.9 - HEART FAILURE, UNSPECIFIED (2) Diabetes mellitus Current Visit: Yes Status: Acute Qualifiers: Diabetes mellitus type: type 2 Diabetes mellitus termite renewal inspector insulin use: with termite renewal inspector use Code(s): E11.9 - TYPE 2 DIABETES MELLITUS WITHOUT COMPLICATIONS (3) Anemia Current Visit: Yes Status: Acute Code(s): D64.9 - ANEMIA, UNSPECIFIED (4) Morbid obesity with BMI of 40.0-44.9, adult Current Visit: Yes Status: Acute Code(s): E66.01 - MORBID (SEVERE) OBESITY DUE TO EXCESS CALORIES; Z68.41 - BODY MASS INDEX [BMI] 40.0-44.9, ADULT (5) HTN (hypertension) Current Visit: Yes Status: Acute Code(s): I10 - ESSENTIAL (PRIMARY) HYPERTENSION (6) Tachycardia Current Visit: Yes Status: Acute Code(s): R00.0 - TACHYCARDIA, UNSPECIFIED (7) Hypothyroidism Current Visit: Yes Status: Acute Assessment & Plan: (1) CHF exacerbation Current Visit: Yes Status: Acute Assessment & Plan: - Continue Lasix IV daily - Echo - EKG - Tele - on baseline O2 2lNC - daily weight - I&O's - Trop x3- negative - TSH - BNP 5030 - cardiology consult - elevate legs - consider TEDS - CXR: Portable chest demonstrates cardiomegaly, vascular congestion, and small bibasilar effusions/atelectasis favoring cardiac decompensation/CHF. Superimposed pneumonia not completely excluded. Bony thorax intact. 05/04/24 - TSH 10.019- Synthroid increased to 112mcg - PT eval for UNNA boots to decrease BLLE edema - Appreciate card recs - continue Lasix Code(s): I50.9 - HEART FAILURE, UNSPECIFIED (2) Diabetes mellitus Current Visit: Yes Status: Acute Qualifiers: Diabetes mellitus type: type 2 Diabetes mellitus termite renewal inspector insulin use: with termite renewal inspector use Assessment & Plan: - A1C 6.08- controlled - accuchecks ac/hs - Humalog s/s Code(s): E11.9 - TYPE 2 DIABETES MELLITUS WITHOUT COMPLICATIONS (3) Anemia Current Visit: Yes Status: Acute Assessment & Plan: - Hgb 7.9 trend - anemia panel - Consider surgical consult for egd/ colonoscopy 05/04 - Hgb 7.7- stable - Iron def. anemia, Iron 34, Iron sat 9- ferrous sulfate daily started Code(s): D64.9 - ANEMIA, UNSPECIFIED (4) Morbid obesity with BMI of 40.0-44.9, adult Current Visit: Yes Status: Acute Assessment & Plan: - advised ADA diet and exercise control per cardiology recs Code(s): E66.01 - MORBID (SEVERE) OBESITY DUE TO EXCESS CALORIES; Z68.41 - BODY MASS INDEX [BMI] 40.0-44.9, ADULT (5) HTN (hypertension) Current Visit: Yes Status: Acute Assessment & Plan: - Continue beta charles - hold amiodarone d/t edema - BP stable- monitor Code(s): I10 - ESSENTIAL (PRIMARY) HYPERTENSION (6) Tachycardia Current Visit: Yes Status: Acute Assessment & Plan: - tele - 2:2 CHF exacerbation, elevated TSH - synthroid increased Code(s): R00.0 - TACHYCARDIA, UNSPECIFIED (7) Hypothyroidism Current Visit: Yes Status: Acute Assessment & Plan: - TSH - Continue Synthroid 04/24 - TSH 10.019 - Synthroid increased VTE: Lovenox PPI: Protonix Next of KIN: Paula Juarez [phone] D/C plan: 2-3 days Code status: Full Code(s): E03.9 - HYPOTHYROIDISM, UNSPECIFIED Code(s): E03.9 - HYPOTHYROIDISM, UNSPECIFIED
[2024-05-04] MEDS ORDERED: SYNTHROID 100 MCG PO SCH (10:00)
[2024-05-04] MEDS ORDERED: NON-FORMULARY ITEM (Sertraline Hcl [Zoloft] 25 MG Tablet) PO SCH (10:00)
[2024-05-04] MEDS ORDERED: NON-FORMULARY ITEM (Aspirin [Aspirin] 325 MG Tablet) PO SCH (10:00)
[2024-05-04] MEDS: Protonix 40MG Tablet PO SCH (10:45)
[2024-05-04] MEDS: Ecotrin 325 MG PO SCH (10:45)
[2024-05-04] MEDS: ZOLOFT 50 MG TABLET PO SCH (10:45)
[2024-05-04] MEDS: Toprol-Xl 25MG Tablets PO SCH (10:45)
[2024-05-04] MEDS: ENOXAPARIN SODIUM SQ SCH (10:47)
[2024-05-04] MEDS: Lasix 40 MG/4 ML IV SCH ×2 (10:47→23:14)
[2024-05-04] MEDS: SYNTHROID 112 MCG PO SCH (10:50)
[2024-05-04] MEDS: Spiriva 18 Mcg/Cap Inhaler IH SCH (11:29)
--- NOTE | 2024-05-04 20:05 | PCM.CONS ---
History of Present Illness - Date of Consult Date of Encounter: 05/04/24 Consulting Cemetery Warden: SINAN HAWTHORNE MD Requesting Provider: Attending Provider: GAVIN JETT MD Primary Care Provider: PCP: JOAN Consent was: Given for this tele-med encounter - Consult Narrative Reason for Consult: CHF HPI: Patient is a 68F who denies fevers, chills, nausea, vomiting, diarrhea, syncope, presyncope, dysphagia,odynophagia, orthopnea, paroxysmal nocturnal dyspnea, shortness of breath, chest pain, refluxsymptoms, belly pain, dysuria, hematuria, melena, hematochezia, seizures, paralysis, or other neurological changes. All other systems have been reviewed and are negative. cc:: The requesting physician will be sent a copy of the consult. - Past Medical History Past Medical History: Yes Neurological History: No Pertinent History ENT History: No Pertinent History Cardiac History: Arrhythmia, Congestive Heart Failure, High Cholesterol, Hypertension, Myocardial Infarction ([place]) Respiratory History: Asthma, COPD Endocrine Medical History: Diabetes Type II, Hypothyroidism Musculoskelatal History: Rheumatoid Arthritis GI Medical History: No Pertinent History, GERD History: No Pertinent History Pyscho-Social History: Anxiety Reproductive Disorders: No Pertinent History Comment: rheumatic fever - Past Surgical History Past Surgical History: Yes Neuro Surgical History: No Pertinent History Cardiac History: Cardiac Catheterization Respiratory Surgery: No Pertinent History GI Surgical History: Cholecystectomy Genitourinary Surgical Hx: No Pertinent History Musculskeletal Surgical Hx: Orthopedic Surgery, Other Female Surgical History: Section Other Surgical History: both feet, both hands and one knee - Social History Smoking Status: Former smoker Exposure to second hand smoke: No Alcohol: None Drug Use: none - Social Determinants of Health Will the patient participate in the screening: Yes Do you worry about a steady place to live?: No Do you have any problems with any of the following?: No known problems In the past 12 months,have you had to go without utilities?: No Have you or anyone in your house had to go without enough: No Transportation Issues: No Has anyone in your support network made you feel unsafe?: No Does the patient want assistance with any of the above?: No Comment: Pt struggles with transportation and sometimes worries about paying for food and utilities Medications & Allergies Home Medications: Home Medication List Albuterol 2.5 mg/3 ml Neb [Proventil 2.5 mg/3 ml Neb] 2.5 mg IH Q2H/PRN PRN 04/29/24 [History Confirmed 05/03/24] Amiodarone HCl 200 mg [Cordarone 200 MG] 200 mg PO BID 04/29/24 [History Confirmed 05/03/24] Aspirin 325 mg PO DAILY 04/29/24 [History Confirmed 05/03/24] Atorvastatin Calcium 40 mg PO HS 04/29/24 [History Confirmed 05/03/24] Diazepam [Valium] 2 mg PO BID 04/29/24 [History Confirmed 05/03/24] Famotidine 20 mg PO BID 04/29/24 [History Confirmed 05/03/24] Fluticasone/Salmeterol 230/21* [Advair Hfa 230/21 Mcg MDI] 2 puff IH BIDRT 04/29/24 [History Confirmed 05/03/24] Insulin Lispro [Humalog] 100 unit SQ UD 04/29/24 [History Confirmed 05/03/24] Metoprolol Succinate 25 mg Xl* [Toprol-Xl 25MG Tablets] 25 mg PO BID 04/29/24 [History Confirmed 05/03/24] Nitroglycerin 0.4 mg SL Q5MIN PRN MR X 3 PRN 04/29/24 [History Confirmed 05/03/24] PANTOPRAZOLE 40 mg Tablet [Protonix 40MG Tablet] 40 mg PO QAM 04/29/24 [History Confirmed 05/03/24] Sertraline HCl [Zoloft] 25 mg PO DAILY 04/29/24 [History Confirmed 05/03/24] Sucralfate [Carafate] 1 gm PO ACHS 04/29/24 [History Confirmed 05/03/24] Tiotropium [place] [Spiriva Handihaler] 2.5 mg IH DAILY 04/29/24 [History Confirmed 05/03/24] glucagon HCL [Glucagon Emergency Kit] 1 mg IM UD PRN 04/29/24 [History Confirmed 05/03/24] Ferrous Sulfate 325 mg [Feosol 325 mg] 325 mg PO DAILY 30 Days #30 tablet 05/07/24 [Rx] Levothyroxine Sodium 112 Mcg [Synthroid 112 Mcg] 112 mcg PO QAM@0700 30 Days #30 tablet 05/07/24 [Rx] Sacubitril/Valsartan [Entresto 49 mg-51 mg Tablet] 0.5 tablet PO BID 30 Days #60 tablet 05/07/24 [Rx] Spironolactone 25 mg [Aldactone 25 MG] 25 mg PO DAILY 30 Days #30 tablet 05/07/24 [Rx] Torsemide 20 mg [Demadex 20 mg] 40 mg PO DAILY 30 Days #60 tablet 05/07/24 [Rx] Allergies/Adverse Reactions: Allergies Allergy/AdvReac Type Severity Reaction Status Date / Time codeine Allergy Verified 05/03/24 17:30 ibuprofen Allergy Verified 05/03/24 17:30 Penicillins Allergy Verified 05/03/24 17:30 Sulfa (Sulfonamide Allergy Verified 05/03/24 17:30 Antibiotics) Exam - Vitals Vital Signs: Vital Signs - 24 hr Temp Pulse Resp BP Pulse Ox 05/04/24 18:50 122 H 18 95 05/04/24 15:13 125 H 18 97 05/04/24 15:00 98 F 120 H 20 111/53 94 L 05/04/24 11:34 98.2 F 120 H 24 104/55 94 L 05/04/24 11:30 123 H 24 92 L 05/04/24 10:20 107/58 05/04/24 07:57 97.5 F 120 H 20 125/57 96 05/04/24 07:19 120 H 18 98 05/04/24 04:00 97.5 F 113 H 22 87/54 98 05/03/24 23:46 97.1 F 115 H 22 108/56 96 05/03/24 20:00 97.8 F 118 H 20 102/55 98 General:: alert and oriented x 4, no acute distress HEENT: EOMI, JVD (2/[address] up to jaw sitting up at 45 degrees) Cardiovascular Exam: regular rate/rhythm, tachycardia, other (Distant heart sounds. Normal S1 and S2.), No murmur Respiratory Exam: wheezing SpO2: 95 Oxygen Delivery: Nasal Cannula Gastrointestinal/Abdomen Exam: normal bowel sounds Skin Exam: warm Extremity Exam: edema (2-3+ below knees bilaterally) Neurologic: appropriate affect, other (Grossly nonfocal.) Results Vital Signs: Vital Signs - 24 hr Temp Pulse Resp BP Pulse Ox 05/04/24 18:50 122 H 18 95 05/04/24 15:13 125 H 18 97 05/04/24 15:00 98 F 120 H 20 111/53 94 L 05/04/24 11:34 98.2 F 120 H 24 104/55 94 L 05/04/24 11:30 123 H 24 92 L 05/04/24 10:20 107/58 05/04/24 07:57 97.5 F 120 H 20 125/57 96 05/04/24 07:19 120 H 18 98 05/04/24 04:00 97.5 F 113 H 22 87/54 98 05/03/24 23:46 97.1 F 115 H 22 108/56 96 05/03/24 20:00 97.8 F 118 H 20 102/55 98 Pain Assessment - Last Documented Pain Intensity 2 Pain Scale Used 0-10 Pain Scale Intake and Output: Intake & Output 05/02/24 05/03/24 05/04/24 05/05/24 11:59 11:59 11:59 11:59 Intake Total 420 240 Output Total 1600 900 Balance -1180 -660 Weight 104 kg LAB: I have reviewed the Labs in [employer]. Radiology Exams: Radiology Procedures Category Date Time Status CHEST 1 VIEW (PORTABLE) Stat Exams 05/03/24 12:24 Completed ECHO W/2D AND DOPPLER [US] Routine Exams 05/04/24 17:29 Taken CXR (AP) 05/03/2024: Portable chest demonstrates cardiomegaly, vascular congestion, and small bibasilar effusions/atelectasis favoring cardiac decompensation/CHF. Superimposed pneumonia not completely excluded. Tracing 2 Attestation: I have reviewed this EKG and interpreted as documented below. EKG Narrative: TTE 05/04/2024: 1. Severely dilated left atrium. Mildly dilated right atrium. Normal ventricular chamber sizes. 2. Moderate concentric left ventricular hypertrophy. 3. Mildly depressed left ventricular systolic function due to a small basal inferoseptal aneurysm. Estimated EF 45-50%. 4. Unable to assess grade of diastolic dysfunction due to underlying sinus tachycardia. 5. Normal right ventricular systolic function. 6. Mild aortic stenosis with Vmax 2.2 m/sec, mean gradient 9 mmHg, ANA 1.1 cm2, and DI 0.37. 7. The anterior mitral valve leaflet is moderately calcified with adequate excursion. No mitral stenosis. 8. Doppler: Moderate mitral regurgitation, mild to moderate tricuspid regurgitation, and trace aortic regurgitation. 9. Normal pulmonary artery pressure. 10. Normal right atrial pressure. 11. No pericardial effusion. 12. Small right pleural effusion. ECGs: 05/04/2024 at 0513: Sinus tchycardia at 118 bpm. RBBB. Nospecific T wave abnormality. Long QTc (QT 0.423, QTc 0.593). 05/03/2024 at 1508: Sinus taqchycardia at 116 bpm. PRWP. Nonspcofic IVCD. Long QTc (QT 0.351, QTc 0.489). Telemetry: Sinus tachycardia at 120 bpm. - ECHO Echo: interpreted by me (Placed under ECG section) Multi-Disciplinary Progress Notes: Multi-Disciplinary Progress Notes 05/04/24 19:46 Radiology Note by SINAN HAWTHORNE TRANSTHORACIC ECHOCADIOGRAM 05/04/2024: 1. Severely dilated left atrium. Mildly dilated right atrium. Normal ventricular chamber sizes. 2. Moderate concentric left ventricular hypertrophy. 3. Mildly depressed left ventricular systolic function due to a small basal inferoseptal aneurysm. Estimated EF 45-50%. 4. Unable to assess grade of diastolic dysfunction due to underlying atrial fibrillation. 5. Normal right ventricular systolic function. 6. Mild aortic stenosis with Vmax 2.2 m/sec, mean gradient 9 mmHg, ANA 1.1 cm2, and DI 0.37. 7. The anterior mitral valve leaflet is moderately calcified with adequate excursion. No mitral stenosis. 8. Doppler: Moderate mitral regurgitation, mild to moderate tricuspid regurgitation, and trace aortic regurgitation. 9. Normal pulmonary artery pressure. 10. Normal right atrial pressure. 11. No pericardial effusion. 12. Small right pleural effusion. Sinan Hawthorne MD [facility] [phone] Initialized on 05/04/24 19:46 - END OF NOTE 05/04/24 14:27 Case Management Note by Maddy Napier PER [facility]- PATIENT WILL NEED THERAPY ASSESSMENT AGAIN FOR [place] PRECERT- ORDER ENTERED Initialized on 05/04/24 14:27 - END OF NOTE 05/04/24 10:23 Case Management Note by Maddy Napier S/W [facility]- PATIENT THERE UNDER HER [employer]. THEY WILL NEED TO GET RECERT FOR PATIENT TO RETURN TO FACILITY. [facility] FAXED CLINICAL AT THIS TIME TO START RECERT Initialized on 05/04/24 10:23 - END OF NOTE Assessment & Plan (1) CHF exacerbation Current Visit: Yes Status: Acute Qualifiers: Heart failure type: combined systolic and diastolic Qualified Code(s): I50.43 - Acute on chronic combined systolic (congestive) and diastolic (congestive) heart failure Assessment & Plan: Acute on chronic HFmEF (EF 45-50%) - multifactoral in setting of mildly depressed LVEF, underlying CAD, hypothyroidism, and anemia. Not on GDMT. Continue current dose metoprolol succinate. Increase furosemide 40 mg IV twice daily. Start spironolactone 25 mg by mouth tomorrow. If BP tolerates increase in diuretics dose, consider starting Entresto 24/26 mg twice daily tomorrow. Code(s): I50.9 - HEART FAILURE, UNSPECIFIED (2) Coronary atherosclerosis Current Visit: Yes Status: Chronic Qualifiers: Coronary Disease-Associated Artery/Lesion type: [place] artery [place] vs. transplanted heart: [place] heart Assessment & Plan: [place] Class 0 without symptoms of angina. No evaluation for progression of coronary artery disease since her [place]/PCI seven years ago. Continue metoprolol succinate. Discontinue adult strength aspirin. If H/H remains stable, consider restartng aspirin 81 mg daily. Outpatient evaluation of her CAD by a local [employer] sales consultant. Code(s): I25.10 - ATHSCL HEART DISEASE OF [place] CORONARY ARTERY W/O ANG PCTRS (3) Long QT interval syndrome Current Visit: Yes Status: Acute Assessment & Plan: Most likely acquired due to amiodarone therapy started 4 months ago. Baseline ECG before amiodarone is not available. Amiodarone currently on hold. Need to obtain records from when this medication was initiated. Suspect patient may have had a bout of atrial fibrillation. Patient is unable to confirm. She denies having systemic anticoagulation recommended. Anticipate restarting at a lower dose (200 mg daily dose) in the near future. keep potassium at least 4.0. Code(s): I45.81 - LONG QT SYNDROME (4) Hypothyroidism Current Visit: Yes Status: Acute Assessment & Plan: Most likely worsened by amiodarone. management per primary team. Code(s): E03.9 - HYPOTHYROIDISM, UNSPECIFIED - Encounter Encounter: "The entirety of this encounter was performed via Telemedicine using audio and visual "
[2024-05-05 05:19] LABS: Hematocrit 27.4 % (34.1-44.9); Mean Cell Volume 86.7 fL (79.4-94.8); Mean Corpuscular Hemoglobin 25.3 pg (25.6-32.2); Mean Corpuscular Hgb Concent. 29.2 g/dL (32.2-35.5); Platelet Count 414 x10^3/uL (182-369); Red Blood Count 3.16 x10^6/uL (3.93-5.22); Red Cell Distribution Width 21.2 % (11.7-14.4); White Blood Count 8.8 x10^3/uL (3.98-10.04)
[2024-05-05 05:32] LABS: ALBUMIN 3.4 g/dL (3.5-5.0); BILIRUBIN,TOTAL 0.3 mg/dL (0.2-1.3); Calcium 8.8 mg/dL (8.4-10.2); Creatinine 1 0.91 mg/dL (0.52-1.04); EST GLOMERULAR FILTRATION RATE 69.2 ML/MIN; Potassium 3.3 mmol/L (3.5-5.1); Total Protein 5.7 g/dL (6.3-8.2)
[2024-05-05 05:44] LABS: ANION GAP 10.3 MEQ/L (5-15)
[2024-05-05] MEDS: Klor Con PO ONE (06:09)
[2024-05-05] MEDS: Klor Con PO SCH (07:47)
[2024-05-05] MEDS: Toprol-Xl 25MG Tablets PO SCH (09:49)
[2024-05-05] MEDS: Aldactone 25 MG PO SCH (09:49)
[2024-05-05] MEDS: FEOSOL 325 MG PO SCH (09:49)
--- NOTE | 2024-05-05 12:23 | PCM.NOTE ---
Date and Time: 05/05/24 1217 Subjective Assessment: 05/03/24 is a 68 year old female with PMHX of oxygen dependent COPD (2 L oxygen via nasal cannula), obesity, hypothyroidism, insulin-dependent diabetes, hyperlipidemia, gastroesophageal reflux disease, anxiety issues, CHF, rheumatoid arthritis, morbid obesity, and arrhythmias. Today she was brought into the emergency department by the paramedics secondary to increased bilateral lower extremity swelling and shortness of breath. She reports her sxs have worsened over 48 hours but admits she has been like this for over a week. Last week, patient received 1 unit of packed red blood cells transfused for low hemoglobin OP. The source of the patient's low hgb is unknown at this time. Review of patient's medication list states the patient is on aspirin but no anticoagulation therapy. Lab results dated 04/28/2024- hemoglobin was 6.9. Since that time she has received 2 units packed red blood cells as an outpatient. She denies hematemesis, bright red blood per rectum, or dark tarry stools or hematochezia. She denies hematuria. In ER she received Lsix 40mg IV, humalog, and zofran. Will continue with IV lasix as she has +3 pitting edema. Echo ordered She is on her baseline oxygen of 2LNC at 99%. Hgb is stable at 7.9 will continue to monitor. She continues to have some SOB. She denies Cp, Abd. pain, N/V/D. 05/04/24 Pt resting in the bed. Edema in BLLE has improved somewhat. PT to eval for weakness and for UNNA boots. TSH is elevated and she reports she has not had her meds changed or labs to check this in quite some time. She states she has been taking her synthroid as she has been in [facility] for rehab. Synthroid increased. Lung sounds and SOB has improved. She is on baseline 2lNC at 98%. Hgb is stable at 7.7. She is scheduled for an Echo today. Pt didn't have Valium last night as we do not carry the dose of medication she takes. She slept fine last night per nursing staff. Awaiting cardiology consult recs. Echo scheduled for today. Plan at d/c when sxs improved is to go back to rehab. She denies CP, SOB, abd. pain, N/V/D. 05/06/24 Pt resting in bed. PT wrapped pt legs today with compression dressings not UNNA boots as pt has no wounds. Cardiology saw pt yesterday evenig and recs provided. Ef 45-50%. Will start Entresto this evening if BP stable. K+ 3.3 replace. HR 12 2- metoprolol increased. She is on BL O2 of 2lNC with some wheezing today. She denies SOB, abd. pain, N/V/D. She continues to have +3 BLLE pitting edema. - Review of Systems Constitutional: Weakness, No Fever, No Chills Eyes: No Symptoms Ears, Nose, & Throat: No Symptoms Respiratory: Wheezing, No Cough, No Short Of Breath Cardiac: Edema (BLLE), No Chest Pain, No Syncope Abdominal/Gastrointestinal: No Abdominal Pain, No Nausea, No Vomiting, No Diarrhea Genitourinary Symptoms: No Dysuria Musculoskeletal: No Back Pain, No Neck Pain Skin: No Rash Neurological: No Dizziness, No Focal Weakness, No Sensory Changes Psychological: No Symptoms Endocrine: No Symptoms Hematologic/Lymphatic: No Symptoms Immunological/Allergic: No Symptoms Objective Exam General Appearance: no apparent distress, alert, obese Neurologic Exam: alert, oriented x 3, cooperative, normal mood/affect, nml cerebellar function, sensation nml, No motor deficits Skin Exam: normal color, warm, dry Eye Exam: PERRL, EOMI, eyes nml inspection Ears, Nose, Throat Exam: normal ENT inspection, pharynx normal, moist mucous membranes Neck Exam: normal inspection, non-tender, supple, full range of motion Respiratory Exam: wheezing, No respiratory distress Cardiovascular Exam: regular rate/rhythm, normal heart sounds, edema (+3 pitting BLLE) Gastrointestinal/Abdomen Exam: soft, No tenderness, No mass Extremity Exam: normal inspection, normal range of motion, pedal edema Back Exam: normal inspection, normal range of motion, No CVA tenderness, No vertebral tenderness Pelvic Exam: deferred Rectal Exam: deferred Objective Data Vital Signs: Vital Signs - 24 hr Temp Pulse Resp BP Pulse Ox 05/05/24 11:00 96.6 F 125 H 16 107/51 90 L 05/05/24 10:52 122 H 16 95 05/05/24 08:00 97.8 F 120 H 22 119/58 96 05/05/24 07:09 122 H 18 96 05/05/24 03:45 98.0 F 94 H 22 115/55 97 05/04/24 23:54 95 05/04/24 23:30 97.7 F 119 H 22 151/71 99 05/04/24 20:00 97.6 F 122 H 22 102/53 99 05/04/24 18:50 122 H 18 95 05/04/24 15:13 125 H 18 97 05/04/24 15:00 98 F 120 H 20 111/53 94 L Pain Assessment - Last Documented Pain Intensity 0 Pain Scale Used 0-10 Pain Scale Intake and Output: Intake & Output 05/03/24 05/04/24 05/05/24 05/06/24 11:59 11:59 11:59 11:59 Intake Total 420 440 Output Total 1600 4300 Balance -1180 -3860 Weight 104 kg 101.5 kg Lab Results: Lab Results-Last 24 Hours 05/04/24 05/04/24 05/05/24 Range/Units 16:18 22:18 05:18 WBC 8.8 (3.98-10.04) x10^3/uL RBC 3.16 L (3.93-5.22) x10^6/uL Hgb 8.0 L (11.2-15.7) g/dL Hct 27.4 L (34.1-44.9) % MCV 86.7 (79.4-94.8) fL MCH 25.3 L (25.6-32.2) pg MCHC 29.2 L (32.2-35.5) g/dL RDW 21.2 H (11.7-14.4) % Plt Count 414 H (182-369) x10^3/uL MPV 9.0 L (9.4-12.3) fL Sodium (135-145) mmol/L Potassium (3.5-5.1) mmol/L Chloride (98-107) mmol/L Carbon Dioxide (22-30) mmol/L Anion Gap (5-15) MEQ/L BUN (7-17) mg/dL Creatinine (0.52-1.04) mg/dL Estimated GFR ML/MIN Glucose (74-106) mg/dL POC Glucometer 121 H 98 (74 to 106) mg/dL Calcium (8.4-10.2) mg/dL Total Bilirubin (0.2-1.3) mg/dL AST (14-36) U/L ALT (0-35) U/L Alkaline Phosphatase (38-126) U/L Serum Total Protein (6.3-8.2) g/dL Albumin (3.5-5.0) g/dL 05/05/24 05/05/24 05/05/24 Range/Units 05:18 07:19 11:11 WBC (3.98-10.04) x10^3/uL RBC (3.93-5.22) x10^6/uL Hgb (11.2-15.7) g/dL Hct (34.1-44.9) % MCV (79.4-94.8) fL MCH (25.6-32.2) pg MCHC (32.2-35.5) g/dL RDW (11.7-14.4) % Plt Count (182-369) x10^3/uL MPV (9.4-12.3) fL Sodium 140 (135-145) mmol/L Potassium 3.3 L (3.5-5.1) mmol/L Chloride 95 L (98-107) mmol/L Carbon Dioxide 38 H (22-30) mmol/L Anion Gap 10.3 (5-15) MEQ/L BUN 21 H (7-17) mg/dL Creatinine 0.91 (0.52-1.04) mg/dL Estimated GFR 69.2 ML/MIN Glucose 107 H (74-106) mg/dL POC Glucometer 90 133 H (74 to 106) mg/dL Calcium 8.8 (8.4-10.2) mg/dL Total Bilirubin 0.30 (0.2-1.3) mg/dL AST 19 (14-36) U/L ALT 17 (0-35) U/L Alkaline Phosphatase 76 (38-126) U/L Serum Total Protein 5.7 L (6.3-8.2) g/dL Albumin 3.4 L (3.5-5.0) g/dL Radiology Exams: Radiology Procedures Category Date Time Status CHEST 1 VIEW (PORTABLE) Stat Exams 05/03/24 12:24 Completed ECHO W/2D AND DOPPLER [US] Routine Exams 05/04/24 17:29 Taken Multi-Disciplinary Progress Notes: Multi-Disciplinary Progress Notes 05/05/24 09:49 Physical Therapy Note by Reg(L#[id number])Florecita CHECKED IN W/ PT. THIS A.M. SLEEPING SOUNDLY UPON P.T. ARRIVAL TO ROOM SHE REPORTS SHE DID NOT SLEEP WELL LAST NIGHT D/T BEING UP OFTEN TO URINATE. PT. CONT. W/ 3+ PITTING EDEMA BILATERAL LLS AND FEET. SMALL OPEN AREA ANTERIOR LL W/ SEROUS DRAINAGE PRESENT. CLEANSED OPEN AREA W/ HIBICLENS, APPLIED MEPILEX LITE FOAM, BARRIER CREAM APPLIED TO BILATERAL LLS FOR SKIN HYDRATION AND PROTECTION. ASSISTED PT. W/ DONNING TUBIGRIP F TO BILATERAL LLS FOR COMPRESSION. UNNA BOOTS PER P.T. NOT INDICATED D/T LACK OF OPEN WOUNDS/STASIS ULCERS. OPERATING MANAGER AND RN NOTIFIED. WILL MONITOR. PT. DID NOT WANT TO PARTICIPATE IN P.T. THIS A.M. D/T FATIGUE. PT. NOTIFIED THAT WE WILL ATTEMPT LATER BUT THAT OUR AVAILABILITY IS LIMITED BY OP SCHEDULE AND OTHER INPT THERAPY PT. NEEDS. Initialized on 05/05/24 09:49 - END OF NOTE 05/05/24 09:18 Case Management Note by Maddy Napier PT EVAL AND UPDATED NOTES FAXED TO [facility] AT THIS TIME FOR PRECERT Initialized on 05/05/24 09:18 - END OF NOTE 05/04/24 21:30 Radiology Note by SINAN HAWTHORNE CORRECTION ON TRANSTHORACIC ECHOCARDIOGRAM REPORT: Unable to assess grade of diastolic dysfunction due to underlying sinus tachycardia at 120 bpm. Sinan Hawthorne MD Initialized on 05/04/24 21:30 - END OF NOTE 05/04/24 19:46 Radiology Note by SINAN HAWTHORNE TRANSTHORACIC ECHOCADIOGRAM 05/04/2024: 1. Severely dilated left atrium. Mildly dilated right atrium. Normal ventricular chamber sizes. 2. Moderate concentric left ventricular hypertrophy. 3. Mildly depressed left ventricular systolic function due to a small basal inferoseptal aneurysm. Estimated EF 45-50%. 4. Unable to assess grade of diastolic dysfunction due to underlying atrial fibrillation. 5. Normal right ventricular systolic function. 6. Mild aortic stenosis with Vmax 2.2 m/sec, mean gradient 9 mmHg, ANA 1.1 cm2, and DI 0.37. 7. The anterior mitral valve leaflet is moderately calcified with adequate excursion. No mitral stenosis. 8. Doppler: Moderate mitral regurgitation, mild to moderate tricuspid regurgitation, and trace aortic regurgitation. 9. Normal pulmonary artery pressure. 10. Normal right atrial pressure. 11. No pericardial effusion. 12. Small right pleural effusion. Sinan Hawthorne MD [facility] [phone] Initialized on 05/04/24 19:46 - END OF NOTE 05/04/24 14:27 Case Management Note by Maddy Napier PER [facility] AT [facility]- PATIENT WILL NEED THERAPY ASSESSMENT AGAIN FOR [facility] PRECERT- ORDER ENTERED Initialized on 05/04/24 14:27 - END OF NOTE Assessment/Plan (1) CHF exacerbation Current Visit: Yes Status: Acute Qualifiers: Heart failure type: combined systolic and diastolic Code(s): I50.9 - HEART FAILURE, UNSPECIFIED (2) Diabetes mellitus Current Visit: Yes Status: Acute Qualifiers: Diabetes mellitus type: type 2 Diabetes mellitus ad terminal makeup operator insulin use: with fci use Code(s): E11.9 - TYPE 2 DIABETES MELLITUS WITHOUT COMPLICATIONS (3) Anemia Current Visit: Yes Status: Acute Code(s): D64.9 - ANEMIA, UNSPECIFIED (4) Morbid obesity with BMI of 40.0-44.9, adult Current Visit: Yes Status: Acute Code(s): E66.01 - MORBID (SEVERE) OBESITY DUE TO EXCESS CALORIES; Z68.41 - BODY MASS INDEX [BMI] 40.0-44.9, ADULT (5) HTN (hypertension) Current Visit: Yes Status: Acute Code(s): I10 - ESSENTIAL (PRIMARY) HYPERTENSION (6) Tachycardia Current Visit: Yes Status: Acute Code(s): R00.0 - TACHYCARDIA, UNSPECIFIED (7) Hypothyroidism Current Visit: Yes Status: Acute Assessment & Plan: (1) CHF exacerbation Current Visit: Yes Status: Acute Assessment & Plan: - Continue Lasix IV daily - Echo - EKG - Tele - on baseline O2 2lNC - daily weight - I&O's - Trop x3- negative - TSH - BNP 5030 - cardiology consult - elevate legs - consider TEDS - CXR: Portable chest demonstrates cardiomegaly, vascular congestion, and small bibasilar effusions/atelectasis favoring cardiac decompensation/CHF. Superimposed pneumonia not completely excluded. Bony thorax intact. 05/04/24 - TSH 10.019- Synthroid increased to 112mcg - PT eval for UNNA boots to decrease BLLE edema - Appreciate card recs - continue Lasix 05/05 - EF 45- 50% - Cardiology recs: Increase furosemide 40 mg IV twice daily. Start spironolactone 25 mg by mouth tomorrow. If BP tolerates increase in diuretics dose, consider starting Entresto 24/26 mg twice daily. - Keep K+ >4 - BLLE compression wraps by PT. Code(s): I50.9 - HEART FAILURE, UNSPECIFIED (2) Diabetes mellitus Current Visit: Yes Status: Acute Qualifiers: Diabetes mellitus type: type 2 Diabetes mellitus ad terminal makeup operator insulin use: with ad terminal makeup operator use Assessment & Plan: - A1C 6.08- controlled - accuchecks ac/hs - Humalog s/s Code(s): E11.9 - TYPE 2 DIABETES MELLITUS WITHOUT COMPLICATIONS (3) Anemia Current Visit: Yes Status: Acute Assessment & Plan: - Hgb 7.9 trend - anemia panel - Consider surgical consult for egd/ colonoscopy 05/04 - Hgb 7.7- stable - Iron def. anemia, Iron 34, Iron sat 9- ferrous sulfate daily started 05/05 - Hgb 8.0 Code(s): D64.9 - ANEMIA, UNSPECIFIED (4) Morbid obesity with BMI of 40.0-44.9, adult Current Visit: Yes Status: Acute Assessment & Plan: - advised ADA diet and exercise control per cardiology recs Code(s): E66.01 - MORBID (SEVERE) OBESITY DUE TO EXCESS CALORIES; Z68.41 - BODY MASS INDEX [BMI] 40.0-44.9, ADULT (5) HTN (hypertension) Current Visit: Yes Status: Acute Assessment & Plan: - Continue beta charles - hold amiodarone d/t edema - BP stable- monitor Code(s): I10 - ESSENTIAL (PRIMARY) HYPERTENSION (6) Tachycardia Current Visit: Yes Status: Acute Assessment & Plan: - tele - 2:2 CHF exacerbation, elevated TSH - synthroid increased 05/05 - Metoprolol increased as HR running in 120's. Code(s): R00.0 - TACHYCARDIA, UNSPECIFIED (7) Hypothyroidism Current Visit: Yes Status: Acute Assessment & Plan: - TSH - Continue Synthroid 04/24 - TSH 10.019 - Synthroid increased Code(s): E03.9 - HYPOTHYROIDISM, UNSPECIFIED (8) Hypokalemia Current Visit: Yes Status: Acute Assessment & Plan: - K+ 3.3 - replaced - Keep > 4 per cards recs VTE: Lovenox PPI: Protonix Next of KIN: Paula Juarez [phone] D/C plan: 1-2 days Code status: Full Code(s): E87.6 - HYPOKALEMIA
[2024-05-06 04:57] LABS: Hematocrit 27.2 % (34.1-44.9); Hemoglobin 7.8 g/dL (11.2-15.7); Mean Cell Volume 86.1 fL (79.4-94.8); Mean Corpuscular Hemoglobin 24.7 pg (25.6-32.2); Mean Corpuscular Hgb Concent. 28.7 g/dL (32.2-35.5); Mean Platelet Volume 9.2 fL (9.4-12.3); Platelet Count 453 x10^3/uL (182-369); Red Blood Count 3.16 x10^6/uL (3.93-5.22); Red Cell Distribution Width 21.3 % (11.7-14.4); White Blood Count 8.1 x10^3/uL (3.98-10.04)
[2024-05-06 05:22] LABS: ALBUMIN 3.1 g/dL (3.5-5.0); BILIRUBIN,TOTAL 0.2 mg/dL (0.2-1.3); Calcium 9.1 mg/dL (8.4-10.2); Creatinine 1 0.86 mg/dL (0.52-1.04); Potassium 4.1 mmol/L (3.5-5.1); Total Protein 5.2 g/dL (6.3-8.2)
[2024-05-06 05:27] LABS: Slide Review YES
[2024-05-06 05:32] LABS: ANION GAP 9.1 MEQ/L (5-15)
--- NOTE | 2024-05-06 13:48 | PCM.NOTE ---
Date and Time: 05/06/24 1343 Subjective Assessment: 05/03/24 is a 68 year old female with PMHX of oxygen dependent COPD (2 L oxygen via nasal cannula), obesity, hypothyroidism, insulin-dependent diabetes, hyperlipidemia, gastroesophageal reflux disease, anxiety issues, CHF, rheumatoid arthritis, morbid obesity, and arrhythmias. Today she was brought into the emergency department by the paramedics secondary to increased bilateral lower extremity swelling and shortness of breath. She reports her sxs have worsened over 48 hours but admits she has been like this for over a week. Last week, patient received 1 unit of packed red blood cells transfused for low hemoglobin OP. The source of the patient's low hgb is unknown at this time. Review of patient's medication list states the patient is on aspirin but no anticoagulation therapy. Lab results dated 04/28/2024- hemoglobin was 6.9. Since that time she has received 2 units packed red blood cells as an outpatient. She denies hematemesis, bright red blood per rectum, or dark tarry stools or hematochezia. She denies hematuria. In ER she received Lsix 40mg IV, humalog, and zofran. Will continue with IV lasix as she has +3 pitting edema. Echo ordered She is on her baseline oxygen of 2LNC at 99%. Hgb is stable at 7.9 will continue to monitor. She continues to have some SOB. She denies Cp, Abd. pain, N/V/D. 05/04/24 Pt resting in the bed. Edema in BLLE has improved somewhat. PT to eval for weakness and for UNNA boots. TSH is elevated and she reports she has not had her meds changed or labs to check this in quite some time. She states she has been taking her synthroid as she has been in [facility] for rehab. Synthroid increased. Lung sounds and SOB has improved. She is on baseline 2lNC at 98%. Hgb is stable at 7.7. She is scheduled for an Echo today. Pt didn't have Valium last night as we do not carry the dose of medication she takes. She slept fine last night per nursing staff. Awaiting cardiology consult recs. Echo scheduled for today. Plan at d/c when sxs improved is to go back to rehab. She denies CP, SOB, abd. pain, N/V/D. 05/05/24 Pt resting in bed. PT wrapped pt legs today with compression dressings not UNNA boots as pt has no wounds. Cardiology saw pt yesterday evenig and recs provided. Ef 45-50%. Will start Entresto this evening if BP stable. K+ 3.3 replace. HR 1 22- metoprolol increased. She is on BL O2 of 2lNC with some wheezing today. She denies SOB, abd. pain, N/V/D. She continues to have +3 BLLE pitting edema. 05/06/24 Pt resting in bed. She refused to work with PT yesterday. Encouraged her to do so today. HR continues to be elevated in 120's. Discussed with cardiology. Entresto started, continue Toprol at increased dose. Continue to monitor. May need to stop lasix. Edema has improved in BLLE but feet continue to be swollen. K+ 4.1 today. She is on BL O2 of 2lNC, lungs clear. She denies SOB, abd. pain, N/V/D - Review of Systems Constitutional: No Fever, No Chills Eyes: No Symptoms Ears, Nose, & Throat: No Symptoms Respiratory: No Cough, No Short Of Breath Cardiac: Edema (BL feet), No Chest Pain, No Syncope Abdominal/Gastrointestinal: No Abdominal Pain, No Nausea, No Vomiting, No Diarrhea Genitourinary Symptoms: No Dysuria Musculoskeletal: No Back Pain, No Neck Pain Skin: No Rash Neurological: No Dizziness, No Focal Weakness, No Sensory Changes Psychological: No Symptoms Endocrine: No Symptoms Hematologic/Lymphatic: No Symptoms Immunological/Allergic: No Symptoms Objective Exam General Appearance: no apparent distress, alert, obese Neurologic Exam: alert, oriented x 3, cooperative, normal mood/affect, nml cerebellar function, sensation nml, No motor deficits Skin Exam: normal color, warm, dry Eye Exam: PERRL, EOMI, eyes nml inspection Ears, Nose, Throat Exam: normal ENT inspection, pharynx normal, moist mucous membranes Neck Exam: normal inspection, non-tender, supple, full range of motion Respiratory Exam: normal breath sounds, lungs clear, No respiratory distress Cardiovascular Exam: regular rate/rhythm, normal heart sounds, tachycardia, edema (BL feet- +3 pitting, BLLE wrapped with compression dressings) Gastrointestinal/Abdomen Exam: soft, No tenderness, No mass Extremity Exam: normal inspection, normal range of motion Back Exam: normal inspection, normal range of motion, No CVA tenderness, No vertebral tenderness Pelvic Exam: deferred Rectal Exam: deferred Objective Data Vital Signs: Vital Signs - 24 hr Temp Pulse Resp BP Pulse Ox 05/06/24 13:00 97.2 F 118 H 24 112/60 96 05/06/24 11:09 115 H 20 96 05/06/24 09:14 118/62 05/06/24 07:54 97.5 F 113 H 25 H 87/51 95 05/06/24 07:31 122 H 20 96 05/06/24 04:00 97.6 F 121 H 22 109/56 94 L 05/06/24 00:00 97.2 F 121 H 22 99/50 93 L 05/05/24 20:00 97.2 F 115 H 24 130/75 96 05/05/24 18:28 119 H 16 94 L 05/05/24 15:00 98.1 F 122 H 20 101/52 93 L Pain Assessment - Last Documented Pain Intensity 0 Pain Scale Used 0-10 Pain Scale Intake and Output: Intake & Output 05/04/24 05/05/24 05/06/24 05/07/24 11:59 11:59 11:59 11:59 Intake Total 420 440 980 240 Output Total 1600 4300 2550 Balance -1180 -3860 -1570 240 Weight 104 kg 101.5 kg 99.1 kg Lab Results: Lab Results-Last 24 Hours 05/05/24 05/05/24 05/05/24 Range/Units 15:54 16:14 21:50 WBC (3.98-10.04) x10^3/uL RBC (3.93-5.22) x10^6/uL Hgb (11.2-15.7) g/dL Hct (34.1-44.9) % MCV (79.4-94.8) fL MCH (25.6-32.2) pg MCHC (32.2-35.5) g/dL RDW (11.7-14.4) % Plt Count (182-369) x10^3/uL MPV (9.4-12.3) fL Sodium (135-145) mmol/L Potassium 4.0 D (3.5-5.1) mmol/L Chloride (98-107) mmol/L Carbon Dioxide (22-30) mmol/L Anion Gap (5-15) MEQ/L BUN (7-17) mg/dL Creatinine (0.52-1.04) mg/dL Estimated GFR ML/MIN Glucose (74-106) mg/dL POC Glucometer 146 H 114 H (74 to 106) mg/dL Calcium (8.4-10.2) mg/dL Magnesium (1.6-2.3) mg/dL Total Bilirubin (0.2-1.3) mg/dL AST (14-36) U/L ALT (0-35) U/L Alkaline Phosphatase (38-126) U/L Serum Total Protein (6.3-8.2) g/dL Albumin (3.5-5.0) g/dL Slides for Path Review 05/06/24 05/06/24 05/06/24 Range/Units 04:44 04:44 04:44 WBC 8.1 (3.98-10.04) x10^3/uL RBC 3.16 L (3.93-5.22) x10^6/uL Hgb 7.8 L (11.2-15.7) g/dL Hct 27.2 L (34.1-44.9) % MCV 86.1 (79.4-94.8) fL MCH 24.7 L (25.6-32.2) pg MCHC 28.7 L (32.2-35.5) g/dL RDW 21.3 H (11.7-14.4) % Plt Count 453 H (182-369) x10^3/uL MPV 9.2 L (9.4-12.3) fL Sodium 137 (135-145) mmol/L Potassium 4.1 (3.5-5.1) mmol/L Chloride 94 L (98-107) mmol/L Carbon Dioxide 38 H (22-30) mmol/L Anion Gap 9.1 (5-15) MEQ/L BUN 18 H (7-17) mg/dL Creatinine 0.86 (0.52-1.04) mg/dL Estimated GFR 74.0 ML/MIN Glucose 97 (74-106) mg/dL POC Glucometer (74 to 106) mg/dL Calcium 9.1 (8.4-10.2) mg/dL Magnesium 1.8 (1.6-2.3) mg/dL Total Bilirubin 0.20 (0.2-1.3) mg/dL AST 18 (14-36) U/L ALT 16 (0-35) U/L Alkaline Phosphatase 77 (38-126) U/L Serum Total Protein 5.2 L (6.3-8.2) g/dL Albumin 3.1 L (3.5-5.0) g/dL Slides for Path Review YES 05/06/24 05/06/24 Range/Units 07:03 11:30 WBC (3.98-10.04) x10^3/uL RBC (3.93-5.22) x10^6/uL Hgb (11.2-15.7) g/dL Hct (34.1-44.9) % MCV (79.4-94.8) fL MCH (25.6-32.2) pg MCHC (32.2-35.5) g/dL RDW (11.7-14.4) % Plt Count (182-369) x10^3/uL MPV (9.4-12.3) fL Sodium (135-145) mmol/L Potassium (3.5-5.1) mmol/L Chloride (98-107) mmol/L Carbon Dioxide (22-30) mmol/L Anion Gap (5-15) MEQ/L BUN (7-17) mg/dL Creatinine (0.52-1.04) mg/dL Estimated GFR ML/MIN Glucose (74-106) mg/dL POC Glucometer 90 95 (74 to 106) mg/dL Calcium (8.4-10.2) mg/dL Magnesium (1.6-2.3) mg/dL Total Bilirubin (0.2-1.3) mg/dL AST (14-36) U/L ALT (0-35) U/L Alkaline Phosphatase (38-126) U/L Serum Total Protein (6.3-8.2) g/dL Albumin (3.5-5.0) g/dL Slides for Path Review Radiology Exams: Radiology Procedures Category Date Time Status ECHO W/2D AND DOPPLER [US] Routine Exams 05/04/24 17:29 Taken Multi-Disciplinary Progress Notes: Multi-Disciplinary Progress Notes 05/06/24 10:15 Case Management Note by Maddy Napier S/W PATIENT- SHE CONTINUES TO PLAN TO RETURN TO [facility] FOR MORE REHAB AT TIME OF DC Initialized on 05/06/24 10:15 - END OF NOTE 05/06/24 08:10 Case Management Note by Maddy Napier/[facility]- AUTH IS GOOD THRU MONDAY 05/07. IF PATIENT DOES NOT ADMIT BEFORE TUESDAY 05/08 THEY WILL NEED UPDATED CLINICAL TO SUBMIT FOR AUTH EXTENSION Initialized on 05/06/24 08:10 - END OF NOTE 05/05/24 17:54 Physical Therapy Note by Flower Paul PT REFUSED X2 THIS AFTERNOON, APPROX 13:30 -SHE ASKED ME TO COME BACK IN AN HOUR, AN AT APPROX 14:30- NURSING ADVISED THAT PT DID NOT WANT TO BE BOTHERED UNTIL 4PM. PT'S OPPORTUNITY WAS THEN DUE TO THERAPIST HAVING OP THERAPY APPOINTMENTS AT 4PM. Initialized on 05/05/24 17:54 - END OF NOTE 05/05/24 14:05 Case Management Note by Maddy Napier [facility] HAS RECEIVED AUTH TO RETURN TO THEIR FACILITY TODAY, [facility] DO HAVE TIMES LIMITS. 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 Code(s): E11.9 - TYPE 2 DIABETES MELLITUS WITHOUT COMPLICATIONS (3) Anemia Current Visit: Yes Status: Acute Code(s): D64.9 - ANEMIA, UNSPECIFIED (4) Morbid obesity with BMI of 40.0-44.9, adult Current Visit: Yes Status: Acute Code(s): E66.01 - MORBID (SEVERE) OBESITY DUE TO EXCESS CALORIES; Z68.41 - BODY MASS INDEX [BMI] 40.0-44.9, ADULT (5) HTN (hypertension) Current Visit: Yes Status: Acute Code(s): I10 - ESSENTIAL (PRIMARY) HYPERTENSION (6) Tachycardia Current Visit: Yes Status: Acute Code(s): R00.0 - TACHYCARDIA, UNSPECIFIED (7) Hypothyroidism Current Visit: Yes Status: Acute Code(s): E03.9 - HYPOTHYROIDISM, UNSPECIFIED (8) Hypokalemia Current Visit: Yes Status: Acute Assessment & Plan: (1) CHF exacerbation Current Visit: Yes Status: Acute Assessment & Plan: - Continue Lasix IV daily - Echo - EKG - Tele - on baseline O2 2lNC - daily weight - I&O's - Trop x3- negative - TSH - BNP 5030 - cardiology consult - elevate legs - consider TEDS - CXR: Portable chest demonstrates cardiomegaly, vascular congestion, and small bibasilar effusions/atelectasis favoring cardiac decompensation/CHF. Superimposed pneumonia not completely excluded. Bony thorax intact. 05/04/24 - TSH 10.019- Synthroid increased to 112mcg - PT eval for UNNA boots to decrease BLLE edema - Appreciate card recs - continue Lasix 05/05 - EF 45- 50% - Cardiology recs: Increase furosemide 40 mg IV twice daily. Start spironolactone 25 mg by mouth tomorrow. If BP tolerates increase in diuretics dose, consider starting Entresto 24/26 mg twice daily. - Keep K+ >4 - BLLE compression wraps by PT. 05/06 - edema improved in legs, BL feet + 3 pitting edema- elevate legs - started Entresto Code(s): I50.9 - HEART FAILURE, UNSPECIFIED (2) Diabetes mellitus Current Visit: Yes Status: Acute Qualifiers: Diabetes mellitus type: type 2 Diabetes mellitus retirement insulin use: with watermelon harvesting supervisor use Assessment & Plan: - A1C 6.08- controlled - accuchecks ac/hs - Humalog s/s Code(s): E11.9 - TYPE 2 DIABETES MELLITUS WITHOUT COMPLICATIONS (3) Anemia Current Visit: Yes Status: Acute Assessment & Plan: - Hgb 7.9 trend - anemia panel - Consider surgical consult for egd/ colonoscopy 05/04 - Hgb 7.7- stable - Iron def. anemia, Iron 34, Iron sat 9- ferrous sulfate daily started 05/05 - Hgb 8.0 05/06 - Hgb 7.8 Code(s): D64.9 - ANEMIA, UNSPECIFIED (4) Morbid obesity with BMI of 40.0-44.9, adult Current Visit: Yes Status: Acute Assessment & Plan: - advised ADA diet and exercise control per cardiology recs Code(s): E66.01 - MORBID (SEVERE) OBESITY DUE TO EXCESS CALORIES; Z68.41 - BODY MASS INDEX [BMI] 40.0-44.9, ADULT (5) HTN (hypertension) Current Visit: Yes Status: Acute Assessment & Plan: - Continue beta charles - hold amiodarone d/t edema - BP stable- monitor Code(s): I10 - ESSENTIAL (PRIMARY) HYPERTENSION (6) Tachycardia Current Visit: Yes Status: Acute Assessment & Plan: - tele - 2:2 CHF exacerbation, elevated TSH - synthroid increased 05/05 - Metoprolol increased as HR running in 120's. 05/06 - Discussed pt case with cardiology- consider stopping lasix or adding another med - entrestro started Code(s): R00.0 - TACHYCARDIA, UNSPECIFIED (7) Hypothyroidism Current Visit: Yes Status: Acute Assessment & Plan: - TSH - Continue Synthroid 04/24 - TSH 10.019 - Synthroid increased Code(s): E03.9 - HYPOTHYROIDISM, UNSPECIFIED (8) Hypokalemia Current Visit: Yes Status: Acute Assessment & Plan: - K+ 3.3 - replaced - Keep > 4 per cards recs 05/06 - K+ 4.1 - resolved VTE: Lovenox PPI: Protonix Next of KIN: Paula Juarez [phone] D/C plan: tomorrow? Code status: Full Code(s): E87.6 - HYPOKALEMIA Code(s): E87.6 - HYPOKALEMIA
[2024-05-06] MEDS: ENTRESTO 49 MG-51 MG TABLET PO SCH (20:24)
[2024-05-07 05:16] LABS: Hematocrit 29.2 % (34.1-44.9); Hemoglobin 8.3 g/dL (11.2-15.7); Mean Cell Volume 85.4 fL (79.4-94.8); Mean Corpuscular Hemoglobin 24.3 pg (25.6-32.2); Mean Corpuscular Hgb Concent. 28.4 g/dL (32.2-35.5); Mean Platelet Volume 8.8 fL (9.4-12.3); Platelet Count 483 x10^3/uL (182-369); Red Blood Count 3.42 x10^6/uL (3.93-5.22); White Blood Count 8.5 x10^3/uL (3.98-10.04)
[2024-05-07 05:57] LABS: ALBUMIN 3.2 g/dL (3.5-5.0); BILIRUBIN,TOTAL 0.3 mg/dL (0.2-1.3); Calcium 9.4 mg/dL (8.4-10.2); Creatinine 1 0.91 mg/dL (0.52-1.04); EST GLOMERULAR FILTRATION RATE 69.2 ML/MIN; Potassium 3.8 mmol/L (3.5-5.1); Total Protein 5.3 g/dL (6.3-8.2)
[2024-05-07 06:45] LABS: ANION GAP 9.8 MEQ/L (5-15)
[2024-05-07 06:52] LABS: Slide Review YES
--- NOTE | 2024-05-07 09:49 | PCM.NOTE ---
Date and Time: 05/07/24 0944 Subjective Assessment: 05/03/24 is a 68 year old female with PMHX of oxygen dependent COPD (2 L oxygen via nasal cannula), obesity, hypothyroidism, insulin-dependent diabetes, hyperlipidemia, gastroesophageal reflux disease, anxiety issues, CHF, rheumatoid arthritis, morbid obesity, and arrhythmias. Today she was brought into the emergency department by the paramedics secondary to increased bilateral lower extremity swelling and shortness of breath. She reports her sxs have worsened over 48 hours but admits she has been like this for over a week. Last week, patient received 1 unit of packed red blood cells transfused for low hemoglobin OP. The source of the patient's low hgb is unknown at this time. Review of patient's medication list states the patient is on aspirin but no anticoagulation therapy. Lab results dated 04/28/2024- hemoglobin was 6.9. Since that time she has received 2 units packed red blood cells as an outpatient. She denies hematemesis, bright red blood per rectum, or dark tarry stools or hematochezia. She denies hematuria. In ER she received Lsix 40mg IV, humalog, and zofran. Will continue with IV lasix as she has +3 pitting edema. Echo ordered She is on her baseline oxygen of 2LNC at 99%. Hgb is stable at 7.9 will continue to monitor. She continues to have some SOB. She denies Cp, Abd. pain, N/V/D. 05/04/24 Pt resting in the bed. Edema in BLLE has improved somewhat. PT to eval for weakness and for UNNA boots. TSH is elevated and she reports she has not had her meds changed or labs to check this in quite some time. She states she has been taking her synthroid as she has been in [facility] for rehab. Synthroid increased. Lung sounds and SOB has improved. She is on baseline 2lNC at 98%. Hgb is stable at 7.7. She is scheduled for an Echo today. Pt didn't have Valium last night as we do not carry the dose of medication she takes. She slept fine last night per nursing staff. Awaiting cardiology consult recs. Echo scheduled for today. Plan at d/c when sxs improved is to go back to rehab. She denies CP, SOB, abd. pain, N/V/D. 05/05/24 Pt resting in bed. PT wrapped pt legs today with compression dressings not UNNA boots as pt has no wounds. Cardiology saw pt yesterday evenkaris and recs provided. Ef 45-50%. Will start Entresto this evening if BP stable. K+ 3.3 replace. HR 1 22- metoprolol increased. She is on BL O2 of 2lNC with some wheezing today. She denies SOB, abd. pain, N/V/D. She continues to have +3 BLLE pitting edema. 05/06/24 Pt resting in bed. She refused to work with PT yesterday. Encouraged her to do so today. HR continues to be elevated in 120's. Discussed with cardiology. Entresto started, continue Toprol at increased dose. Continue to monitor. May need to stop lasix. Edema has improved in BLLE but feet continue to be swollen. K+ 4.1 today. She is on BL O2 of 2lNC, lungs clear. She denies SOB, abd. pain, N/V/D 05/07/24 Pt resting in bed. She is wanting to leave today to go back to rehab. Edema of BLLE has improved. HR is a bit lower but still tachycardic. Hgb stable. cardiology to see pt this AM. If ok she may d/c this afternoon. She denies CP, SOB, abd. pain, N/V/D. Objective Data Vital Signs: Vital Signs - 24 hr Temp Pulse Resp BP Pulse Ox 05/07/24 07:29 97.9 F 123 H 20 100/59 92 L 05/07/24 06:27 118 H 16 95 05/07/24 05:00 97.6 F 119 H 18 97/51 93 L 05/06/24 23:52 97.8 F 113 H 18 128/74 94 L 05/06/24 20:00 97.1 F 121 H 22 124/61 95 05/06/24 18:30 123 H 20 96 05/06/24 17:00 97.5 F 122 H 22 128/59 93 L 05/06/24 15:04 122 H 22 93 L 05/06/24 13:00 97.2 F 118 H 24 112/60 96 05/06/24 11:09 115 H 20 96 Pain Assessment - Last Documented Pain Intensity 0 Pain Scale Used 0-10 Pain Scale Intake and Output: Intake & Output 05/04/24 05/05/24 05/06/24 05/07/24 11:59 11:59 11:59 11:59 Intake Total 420 440 980 980 Output Total 1600 4300 2550 1700 Balance -1180 -3860 -1570 -720 Weight 104 kg 101.5 kg 99.1 kg 95.4 kg Lab Results: Lab Results-Last 24 Hours 05/06/24 05/06/24 05/06/24 Range/Units 11:30 16:13 22:19 WBC (3.98-10.04) x10^3/uL RBC (3.93-5.22) x10^6/uL Hgb (11.2-15.7) g/dL Hct (34.1-44.9) % MCV (79.4-94.8) fL MCH (25.6-32.2) pg MCHC (32.2-35.5) g/dL RDW (11.7-14.4) % Plt Count (182-369) x10^3/uL MPV (9.4-12.3) fL Sodium (135-145) mmol/L Potassium (3.5-5.1) mmol/L Chloride (98-107) mmol/L Carbon Dioxide (22-30) mmol/L Anion Gap (5-15) MEQ/L BUN (7-17) mg/dL Creatinine (0.52-1.04) mg/dL Estimated GFR ML/MIN Glucose (74-106) mg/dL POC Glucometer 95 125 H 102 (74 to 106) mg/dL Calcium (8.4-10.2) mg/dL Total Bilirubin (0.2-1.3) mg/dL AST (14-36) U/L ALT (0-35) U/L Alkaline Phosphatase (38-126) U/L Serum Total Protein (6.3-8.2) g/dL Albumin (3.5-5.0) g/dL Slides for Path Review 05/07/24 05/07/24 05/07/24 Range/Units 05:11 05:11 06:49 WBC 8.5 (3.98-10.04) x10^3/uL RBC 3.42 L (3.93-5.22) x10^6/uL Hgb 8.3 L (11.2-15.7) g/dL Hct 29.2 L (34.1-44.9) % MCV 85.4 (79.4-94.8) fL MCH 24.3 L (25.6-32.2) pg MCHC 28.4 L (32.2-35.5) g/dL RDW 21.0 H (11.7-14.4) % Plt Count 483 H (182-369) x10^3/uL MPV 8.8 L (9.4-12.3) fL Sodium 137 (135-145) mmol/L Potassium 3.8 (3.5-5.1) mmol/L Chloride 93 L (98-107) mmol/L Carbon Dioxide 38 H (22-30) mmol/L Anion Gap 9.8 (5-15) MEQ/L BUN 21 H (7-17) mg/dL Creatinine 0.91 (0.52-1.04) mg/dL Estimated GFR 69.2 ML/MIN Glucose 102 (74-106) mg/dL POC Glucometer 94 (74 to 106) mg/dL Calcium 9.4 (8.4-10.2) mg/dL Total Bilirubin 0.30 (0.2-1.3) mg/dL AST 20 (14-36) U/L ALT 16 (0-35) U/L Alkaline Phosphatase 79 (38-126) U/L Serum Total Protein 5.3 L (6.3-8.2) g/dL Albumin 3.2 L (3.5-5.0) g/dL Slides for Path Review YES 05/07/24 Range/Units 06:49 WBC (3.98-10.04) x10^3/uL RBC (3.93-5.22) x10^6/uL Hgb (11.2-15.7) g/dL Hct (34.1-44.9) % MCV (79.4-94.8) fL MCH (25.6-32.2) pg MCHC (32.2-35.5) g/dL RDW (11.7-14.4) % Plt Count (182-369) x10^3/uL MPV (9.4-12.3) fL Sodium (135-145) mmol/L Potassium (3.5-5.1) mmol/L Chloride (98-107) mmol/L Carbon Dioxide (22-30) mmol/L Anion Gap (5-15) MEQ/L BUN (7-17) mg/dL Creatinine (0.52-1.04) mg/dL Estimated GFR ML/MIN Glucose (74-106) mg/dL POC Glucometer 94 (74 to 106) mg/dL Calcium (8.4-10.2) mg/dL Total Bilirubin (0.2-1.3) mg/dL AST (14-36) U/L ALT (0-35) U/L Alkaline Phosphatase (38-126) U/L Serum Total Protein (6.3-8.2) g/dL Albumin (3.5-5.0) g/dL Slides for Path Review Multi-Disciplinary Progress Notes: Multi-Disciplinary Progress Notes 05/06/24 14:41 Physical Therapy Note by Reg(L#[id number])Florecita PT. WAS SEEN BY [facility]. THIS P.M. REPORTS NO C/O PN. STILL REPORTS LES WEAK AND TREMORING W/ WB. REPORTS SHE SLEPT BETTER LAST NIGHT. PT. CONT. ON 2L O2. NOTED 3+ PITTED EDEMA IN FEET . TUBIGRIP SOCKS STILL ON LES BUT HAD MOVED OUT OF PLACE W/ DEMARCATION AROUND LLS AND ANKLES. OPTED TO WRAP LES W/ UNNA BOOT FOR COMPRESSION. APPLIED BARRIER OINTMENT TO BILATERAL LLS AND FEET, DRESSED W/ GELOCAST AND COBAN FOR COMPRESSION. PERFORMED SIT TO STAND W/ SBA. O2 SATS 93% ON 2L AND HR 123. PT. AMBULATED ~ 30' W/ ROLLATOR 2 L O2 AND MIN ASSIST - NOTED SIGNIFICANT LE TREMORING AND PT. HAD TO USE ROLLATOR SEAT TO REST D/T LE WEAKNESS. PT. CUED TO SLOW DOWN TURN TO SIT AND HAD TO LOCK ROLLATOR FOR HER. PT. AMBULATED BACK TO SIDE OF BED W/ ROLLATOR AND MIN ASSIST. LE TREMORING STILL NOTED. PT. GIVEN V.C. FOR PURSED LIP BREATHING. PERFORMED SEATED LE EX'S OF LAQS, MARCHES, AND ANKLE PUMPS. ABLE TO SCOOT OT HEAD OF BED W/ SBA. DID NOT WANT TO SIT IN CHAIR. COUGHED NOTED OFTEN THROUGHOUT RX. ADVISED PT. TO SIT IN CHAIR FOR DINNER TO PROMOTE IMPROVED LUNG FUNCTION. PLAN IS TO D/C TO SNF TO CONT. REHAB WHEN STABLE. WILL CONT. P.T. 5X/WK UNTIL D/C. Initialized on 05/06/24 14:41 - END OF NOTE 05/06/24 10:15 Case Management Note by Maddy Napier S/W PATIENT- SHE CONTINUES TO PLAN TO RETURN TO [facility] FOR MORE REHAB AT TIME OF DC Initialized on 05/06/24 10:15 - END OF NOTE Assessment/Plan (1) CHF exacerbation Current Visit: Yes Status: Acute Qualifiers: Heart failure type: combined systolic and diastolic Code(s): I50.9 - HEART FAILURE, UNSPECIFIED (2) Diabetes mellitus Current Visit: Yes Status: Acute Qualifiers: Diabetes mellitus type: type 2 Diabetes mellitus prison insulin use: with prison use Code(s): E11.9 - TYPE 2 DIABETES MELLITUS WITHOUT COMPLICATIONS (3) Anemia Current Visit: Yes Status: Acute Code(s): D64.9 - ANEMIA, UNSPECIFIED (4) Morbid obesity with BMI of 40.0-44.9, adult Current Visit: Yes Status: Acute Code(s): E66.01 - MORBID (SEVERE) OBESITY DUE TO EXCESS CALORIES; Z68.41 - BODY MASS INDEX [BMI] 40.0-44.9, ADULT (5) HTN (hypertension) Current Visit: Yes Status: Acute Code(s): I10 - ESSENTIAL (PRIMARY) HYPERTENSION (6) Tachycardia Current Visit: Yes Status: Acute Code(s): R00.0 - TACHYCARDIA, UNSPECIFIED (7) Hypothyroidism Current Visit: Yes Status: Acute Code(s): E03.9 - HYPOTHYROIDISM, UNSPECIFIED (8) Hypokalemia Current Visit: Yes Status: Acute Code(s): E87.6 - HYPOKALEMIA
--- NOTE | 2024-05-07 09:57 | PCM.DS ---
Discharge Summary Date of Admission: 05/04/24 19:51 Date of Discharge: 05/07/24 Admitting Physician: GAVIN JETT MD Consults: Consults on Case 05/03/24 17:47 Consult Cardiology ROUTINE Primary Care Provider: [facility] Allergies Allergies codeine Allergy (Verified 05/03/24 17:30) ibuprofen Allergy (Verified 05/03/24 17:30) Penicillins Allergy (Verified 05/03/24 17:30) Sulfa (Sulfonamide Antibiotics) Allergy (Verified 05/03/24 17:30) Hospital Summary - Hospital Course Hospital Course: 05/03/24 is a 68 year old female with PMHX of oxygen dependent COPD (2 L oxygen via nasal cannula), obesity, hypothyroidism, insulin-dependent diabetes, hyperlipidemia, gastroesophageal reflux disease, anxiety issues, CHF, rheumatoid arthritis, morbid obesity, and arrhythmias. Today she was brought into the emergency department by the paramedics secondary to increased bilateral lower extremity swelling and shortness of breath. She reports her sxs have worsened over 48 hours but admits she has been like this for over a week. Last week, patient received 1 unit of packed red blood cells transfused for low hemoglobin OP. The source of the patient's low hgb is unknown at this time. Review of patient's medication list states the patient is on aspirin but no anticoagulation therapy. Lab results dated 04/28/2024- hemoglobin was 6.9. Since that time she has received 2 units packed red blood cells as an outpatient. She denies hematemesis, bright red blood per rectum, or dark tarry stools or hematochezia. She denies hematuria. In ER she received Lsix 40mg IV, humalog, and zofran. Will continue with IV lasix as she has +3 pitting edema. Echo ordered She is on her baseline oxygen of 2LNC at 99%. Hgb is stable at 7.9 will continue to monitor. She continues to have some SOB. She denies Cp, Abd. pain, N/V/D. 05/04/24 Pt resting in the bed. Edema in BLLE has improved somewhat. PT to eval for weakness and for UNNA boots. TSH is elevated and she reports she has not had her meds changed or labs to check this in quite some time. She states she has been taking her synthroid as she has been in [facility] for rehab. Synthroid increased. Lung sounds and SOB has improved. She is on baseline 2lNC at 98%. Hgb is stable at 7.7. She is scheduled for an Echo today. Pt didn't have Valium last night as we do not carry the dose of medication she takes. She slept fine last night per nursing staff. Awaiting cardiology consult recs. Echo scheduled for today. Plan at d/c when sxs improved is to go back to rehab. She denies CP, SOB, abd. pain, N/V/D. 05/05/24 Pt resting in bed. PT wrapped pt legs today with compression dressings not UNNA boots as pt has no wounds. Cardiology saw pt yesterday evenig and recs provided. Ef 45-50%. Will start Entresto this evening if BP stable. K+ 3.3 replace. HR 122- metoprolol increased. She is on BL O2 of 2lNC with some wheezing today. She denies SOB, abd. pain, N/V/D. She continues to have +3 BLLE pitting edema. 05/06/24 Pt resting in bed. She refused to work with PT yesterday. Encouraged her to do so today. HR continues to be elevated in 120's. Discussed with cardiology. Entresto started, continue Toprol at increased dose. Continue to monitor. May need to stop lasix. Edema has improved in BLLE but feet continue to be swollen. K+ 4.1 today. She is on BL O2 of 2lNC, lungs clear. She denies SOB, abd. pain, N/V/D 05/07/24 Pt resting in bed. She is wanting to leave today to go back to rehab. Edema of BLLE has improved. HR is a bit lower but still tachycardic. Hgb stable. cardiology to see pt this AM. If ok she may d/c this afternoon. She denies CP, SOB, abd. pain, N/V/D. - Vitals & Intake/Output Vital Signs: Vital Signs Temperature 97.9 F 05/07/24 07:29 Pulse Rate 123 H 05/07/24 07:29 Respiratory Rate 20 05/07/24 07:29 Blood Pressure 100/59 05/07/24 07:29 O2 Sat by Pulse Oximetry 92 L 05/07/24 07:29 Intake & Output: Intake & Output 05/04/24 05/05/24 05/06/24 05/07/24 11:59 11:59 11:59 11:59 Intake Total 420 440 980 980 Output Total 1600 4300 2550 1700 Balance -1180 -0540 -1570 -720 Weight 104 kg 101.5 kg 99.1 kg 95.4 kg - Lab Result Diagrams: 05/07/24 05:11 05/07/24 05:11 Lab Results-Last 24 Hrs: Lab Results-Last 24 Hours 05/06/24 05/06/24 05/06/24 Range/Units 11:30 16:13 22:19 WBC (3.98-10.04) x10^3/uL RBC (3.93-5.22) x10^6/uL Hgb (11.2-15.7) g/dL Hct (34.1-44.9) % MCV (79.4-94.8) fL MCH (25.6-32.2) pg MCHC (32.2-35.5) g/dL RDW (11.7-14.4) % Plt Count (182-369) x10^3/uL MPV (9.4-12.3) fL Sodium (135-145) mmol/L Potassium (3.5-5.1) mmol/L Chloride (98-107) mmol/L Carbon Dioxide (22-30) mmol/L Anion Gap (5-15) MEQ/L BUN (7-17) mg/dL Creatinine (0.52-1.04) mg/dL Estimated GFR ML/MIN Glucose (74-106) mg/dL POC Glucometer 95 125 H 102 (74 to 106) mg/dL Calcium (8.4-10.2) mg/dL Total Bilirubin (0.2-1.3) mg/dL AST (14-36) U/L ALT (0-35) U/L Alkaline Phosphatase (38-126) U/L Serum Total Protein (6.3-8.2) g/dL Albumin (3.5-5.0) g/dL Slides for Path Review 05/07/24 05/07/24 05/07/24 Range/Units 05:11 05:11 06:49 WBC 8.5 (3.98-10.04) x10^3/uL RBC 3.42 L (3.93-5.22) x10^6/uL Hgb 8.3 L (11.2-15.7) g/dL Hct 29.2 L (34.1-44.9) % MCV 85.4 (79.4-94.8) fL MCH 24.3 L (25.6-32.2) pg MCHC 28.4 L (32.2-35.5) g/dL RDW 21.0 H (11.7-14.4) % Plt Count 483 H (182-369) x10^3/uL MPV 8.8 L (9.4-12.3) fL Sodium 137 (135-145) mmol/L Potassium 3.8 (3.5-5.1) mmol/L Chloride 93 L (98-107) mmol/L Carbon Dioxide 38 H (22-30) mmol/L Anion Gap 9.8 (5-15) MEQ/L BUN 21 H (7-17) mg/dL Creatinine 0.91 (0.52-1.04) mg/dL Estimated GFR 69.2 ML/MIN Glucose 102 (74-106) mg/dL POC Glucometer 94 (74 to 106) mg/dL Calcium 9.4 (8.4-10.2) mg/dL Total Bilirubin 0.30 (0.2-1.3) mg/dL AST 20 (14-36) U/L ALT 16 (0-35) U/L Alkaline Phosphatase 79 (38-126) U/L Serum Total Protein 5.3 L (6.3-8.2) g/dL Albumin 3.2 L (3.5-5.0) g/dL Slides for Path Review YES 05/07/24 Range/Units 06:49 WBC (3.98-10.04) x10^3/uL RBC (3.93-5.22) x10^6/uL Hgb (11.2-15.7) g/dL Hct (34.1-44.9) % MCV (79.4-94.8) fL MCH (25.6-32.2) pg MCHC (32.2-35.5) g/dL RDW (11.7-14.4) % Plt Count (182-369) x10^3/uL MPV (9.4-12.3) fL Sodium (135-145) mmol/L Potassium (3.5-5.1) mmol/L Chloride (98-107) mmol/L Carbon Dioxide (22-30) mmol/L Anion Gap (5-15) MEQ/L BUN (7-17) mg/dL Creatinine (0.52-1.04) mg/dL Estimated GFR ML/MIN Glucose (74-106) mg/dL POC Glucometer 94 (74 to 106) mg/dL Calcium (8.4-10.2) mg/dL Total Bilirubin (0.2-1.3) mg/dL AST (14-36) U/L ALT (0-35) U/L Alkaline Phosphatase (38-126) U/L Serum Total Protein (6.3-8.2) g/dL Albumin (3.5-5.0) g/dL Slides for Path Review Micro Results-Entire Visit: Accuchecks Date 05/07/24 Date 05/06/24 Date 05/06/24 - Procedures and Test Procedures and Tests throughout Hospitalization: Therapy Orders & Screens 05/03/24 17:14 EKG REPEAT IN AM Comment: Oxygen Nasal Cannula 2 lpm Comment: Respiratory Therapy Consult ONCE Comment: Reason For Exam: 05/03/24 17:46 RT Screen per Nursing Assess ONCE Comment: Protocol Order Physician Instructions: Greater than 3 points order RT Admission Screen Reason For Exam: Triggered on Admission Diagnosis: CHF, anemia Diagnosis: CHF, anemia Pneumonia: No Home O2: Yes Asthma: Yes CHF: Yes Home CPAP/BIPAP: No Home Nebs/MDI: Yes Total Points: 17 05/04/24 09:24 PT Eval & Treat (MD Order) ONCE Reason for Eval:: weakness, unna boots Diagnosis: CHF, anemia 05/04/24 11:30 Respiratory Therapy Assessment DAILY Comment: Diagnosis: CHF, anemia Discharge Exam General Appearance: no apparent distress, alert, obese Neurologic Exam: alert, oriented x 3, cooperative, normal mood/affect, nml cerebellar function, sensation nml, No motor deficits Eye Exam: PERRL, EOMI, eyes nml inspection Ears, Nose, Throat Exam: normal ENT inspection, pharynx normal, moist mucous membranes Neck Exam: normal inspection, non-tender, supple, full range of motion Respiratory Exam: normal breath sounds, lungs clear, No respiratory distress Cardiovascular Exam: regular rate/rhythm, normal heart sounds, tachycardia Gastrointestinal/Abdomen Exam: soft, No tenderness, No mass Pelvic Exam: deferred Rectal Exam: deferred Back Exam: normal inspection, normal range of motion, No CVA tenderness, No vertebral tenderness Extremity Exam: normal inspection, normal range of motion Skin Exam: normal color, warm, dry Final Diagnosis/Problem List - Final Discharge Diagnosis/Problem (1) CHF exacerbation Current Visit: Yes Status: Acute Code(s): I50.9 - HEART FAILURE, UNSPECIFIED (2) Diabetes mellitus Current Visit: Yes Status: Ruled-out Code(s): E11.9 - TYPE 2 DIABETES MELLITUS WITHOUT COMPLICATIONS (3) Anemia Current Visit: Yes Status: Acute Code(s): D64.9 - ANEMIA, UNSPECIFIED (4) Morbid obesity with BMI of 40.0-44.9, adult Current Visit: Yes Status: Acute Code(s): E66.01 - MORBID (SEVERE) OBESITY DUE TO EXCESS CALORIES; Z68.41 - BODY MASS INDEX [BMI] 40.0-44.9, ADULT (5) HTN (hypertension) Current Visit: Yes Status: Acute Code(s): I10 - ESSENTIAL (PRIMARY) HYPERTENSION (6) Tachycardia Current Visit: Yes Status: Acute Code(s): R00.0 - TACHYCARDIA, UNSPECIFIED (7) Hypothyroidism Current Visit: Yes Status: Acute Code(s): E03.9 - HYPOTHYROIDISM, UNSPECIFIED (8) Hypokalemia Current Visit: Yes Status: Acute Assessment & Plan: (1) CHF exacerbation Current Visit: Yes Status: Acute Assessment & Plan: - Continue Lasix IV daily - Echo - EKG - Tele - on baseline O2 2lNC - daily weight - I&O's - Trop x3- negative - TSH - BNP 5030 - cardiology consult - elevate legs - consider TEDS - CXR: Portable chest demonstrates cardiomegaly, vascular congestion, and small bibasilar effusions/atelectasis favoring cardiac decompensation/CHF. Superimposed pneumonia not completely excluded. Bony thorax intact. 05/04/24 - TSH 10.019- Synthroid increased to 112mcg - PT eval for UNNA boots to decrease BLLE edema - Appreciate card recs - continue Lasix 05/05 - EF 45- 50% - Cardiology recs: Increase furosemide 40 mg IV twice daily. Start spironolactone 25 mg by mouth tomorrow. If BP tolerates increase in diuretics dose, consider starting Entresto 24/26 mg twice daily. - Keep K+ >4 - BLLE compression wraps by PT. 05/06 - edema improved in legs, BL feet + 3 pitting edema- elevate legs - started Entresto 05/07 - HR improved but still tachy - Cardio to consult- if ok can d/c today - will need daily weight OP - Start toresimide 40mg daily OP Code(s): I50.9 - HEART FAILURE, UNSPECIFIED (2) Diabetes mellitus Current Visit: Yes Status: Acute Qualifiers: Diabetes mellitus type: type 2 Diabetes mellitus mcc insulin use: with mcc use Assessment & Plan: - A1C 6.08- controlled - accuchecks ac/hs - Humalog s/s - Pt is not a diabetic based on A1C, glucose was elevated druring visit and A1C was checked. Code(s): E11.9 - TYPE 2 DIABETES MELLITUS WITHOUT COMPLICATIONS (3) Anemia Current Visit: Yes Status: Acute Assessment & Plan: - Hgb 7.9 trend - anemia panel - Consider surgical consult for egd/ colonoscopy 05/04 - Hgb 7.7- stable - Iron def. anemia, Iron 34, Iron sat 9- ferrous sulfate daily started 05/05 - Hgb 8.0 05/06 - Hgb 7.8 05/07 - Hgb 8.3 Code(s): D64.9 - ANEMIA, UNSPECIFIED (4) Morbid obesity with BMI of 40.0-44.9, adult Current Visit: Yes Status: Acute Assessment & Plan: - advised ADA diet and exercise control per cardiology recs Code(s): E66.01 - MORBID (SEVERE) OBESITY DUE TO EXCESS CALORIES; Z68.41 - BODY MASS INDEX [BMI] 40.0-44.9, ADULT (5) HTN (hypertension) Current Visit: Yes Status: Acute Assessment & Plan: - Continue beta charles - hold amiodarone d/t edema - BP stable- monitor Code(s): I10 - ESSENTIAL (PRIMARY) HYPERTENSION (6) Tachycardia Current Visit: Yes Status: Acute Assessment & Plan: - tele - 2:2 CHF exacerbation, elevated TSH - synthroid increased 6/19 - Metoprolol increased as HR running in 120's. 05/06 - Discussed pt case with cardiology- consider stopping lasix or adding another med - entrestro started 05/07 - cardiology to see pt today. - Continued tachycardia in 110's-may be r/t anemia and CHF- will need to f/u OP with cardiology for further evaluation. Code(s): R00.0 - TACHYCARDIA, UNSPECIFIED (7) Hypothyroidism Current Visit: Yes Status: Acute Assessment & Plan: - TSH - Continue Synthroid 04/24 - TSH 10.019 - Synthroid increased Code(s): E03.9 - HYPOTHYROIDISM, UNSPECIFIED (8) Hypokalemia Current Visit: Yes Status: Acute Assessment & Plan: - K+ 3.3 - replaced - Keep > 4 per cards recs 05/06 - K+ 4.1 - resolved Code(s): E87.6 - HYPOKALEMIA - Discharge Discharge Date: 05/07/24 (rehab @ [facility]) Disposition: XFER OTHER Condition: Fair Prescriptions: New Spironolactone 25 mg [Aldactone 25 MG] 25 mg PO DAILY 30 Days #30 tablet Sacubitril/Valsartan [Entresto 49 mg-51 mg Tablet] 0.5 tablet PO BID 30 Days #60 tablet Ferrous Sulfate 325 mg [Feosol 325 mg] 325 mg PO DAILY 30 Days #30 tablet Levothyroxine Sodium 112 Mcg [Synthroid 112 Mcg] 112 mcg PO QAM@0700 30 Days #30 tablet Continue Sertraline HCl [Zoloft] 25 mg PO DAILY PANTOPRAZOLE 40 mg Tablet [Protonix 40MG Tablet] 40 mg PO QAM Nitroglycerin 0.4 mg SL Q5MIN PRN MR X 3 PRN PRN Reason: Chest Pain Metoprolol Succinate 25 mg Xl* [Toprol-Xl 25MG Tablets] 25 mg PO BID Insulin Lispro [Humalog] 100 unit SQ UD glucagon HCL [Glucagon Emergency Kit] 1 mg IM UD PRN PRN Reason: Hypoglycemia Famotidine 20 mg PO BID Diazepam [Valium] 2 mg PO BID Sucralfate [Carafate] 1 gm PO ACHS Atorvastatin Calcium 40 mg PO HS Aspirin 325 mg PO DAILY Amiodarone HCl 200 mg [Cordarone 200 MG] 200 mg PO BID Albuterol 2.5 mg/3 ml Neb [Proventil 2.5 mg/3 ml Neb] 2.5 mg IH Q2H/PRN PRN PRN Reason: Shortness Of Breath Fluticasone/Salmeterol 230/21* [Advair Hfa 230/21 Mcg MDI] 2 puff IH BIDRT Tiotropium [place] [Spiriva Handihaler] 2.5 mg IH DAILY Discontinued Levothyroxine Sodium 100 Mcg [Synthroid 100 Mcg] 100 mcg PO DAILY Additional Instructions: daily weights at [facility], if gains > 3 lbs please call cardiology. F/u with cardiology as scheduled. . Follow up with: ESTEBAN NOBLE [CONSULTING PHYSICIAN] - 05/19/24 10:00 am (Please bring current med list, ID card and insurance card to appointment ) [facility] [Primary Care Provider] -
[2024-05-07 10:19] VITALS: RESP 18
[2024-05-07 13:56] VITALS: BP 90/51; PULSE 123; TEMP 97.8
--- NOTE | 2024-05-07 14:04 | PCM.NOTE ---
Date and Time: 05/07/24 1403 Subjective Assessment: Aware of always having a fast heart for the past 2 years. Has not seen a tube coverer in 5 years (Dr. Darius Odell) Exam General:: no acute distress HEENT: EOMI, No JVD Cardiovascular: Regular Rate & Rhythm, s1 s2 (normal), tachycardia, edema (Legs in wraps below knees. Significant devrease in edema per nursing. Mild edema persists in feet.), No no murmurs,rubs,gallops, No gallop Respiratory:: clear to auscultation burt O2 Delivery: Nasal Cannula Abdominal: active bowel sounds x 4 Extremity Exam: moves all 4 extremities Objective Data Vital Signs: Vital Signs - 24 hr Temp Pulse Resp BP Pulse Ox 05/07/24 13:00 97.8 F 123 H 18 90/51 90 L 05/07/24 10:18 120 H 18 93 L 05/07/24 07:29 97.9 F 123 H 20 100/59 92 L 05/07/24 06:27 118 H 16 95 05/07/24 05:00 97.6 F 119 H 18 97/51 93 L 05/06/24 23:52 97.8 F 113 H 18 128/74 94 L 05/06/24 20:00 97.1 F 121 H 22 124/61 95 05/06/24 18:30 123 H 20 96 05/06/24 17:00 97.5 F 122 H 22 128/59 93 L 05/06/24 15:04 122 H 22 93 L Pain Assessment - Last Documented Pain Intensity 0 Pain Scale Used 0-10 Pain Scale Intake and Output: Intake & Output 05/05/24 05/06/24 05/07/24 05/08/24 11:59 11:59 11:59 11:59 Intake Total 936 272 5800 280 Output Total 4300 2550 1700 Balance -2780 -1570 -480 280 Weight 101.5 kg 99.1 kg 95.4 kg LAB: I have reviewed the Labs in [facility]. Lab Results: Lab Results-Last 24 Hours 05/06/24 05/06/24 05/07/24 Range/Units 16:13 22:19 05:11 WBC 8.5 (3.98-10.04) x10^3/uL RBC 3.42 L (3.93-5.22) x10^6/uL Hgb 8.3 L (11.2-15.7) g/dL Hct 29.2 L (34.1-44.9) % MCV 85.4 (79.4-94.8) fL MCH 24.3 L (25.6-32.2) pg MCHC 28.4 L (32.2-35.5) g/dL RDW 21.0 H (11.7-14.4) % Plt Count 483 H (182-369) x10^3/uL MPV 8.8 L (9.4-12.3) fL Sodium (135-145) mmol/L Potassium (3.5-5.1) mmol/L Chloride (98-107) mmol/L Carbon Dioxide (22-30) mmol/L Anion Gap (5-15) MEQ/L BUN (7-17) mg/dL Creatinine (0.52-1.04) mg/dL Estimated GFR ML/MIN Glucose (74-106) mg/dL POC Glucometer 125 H 102 (74 to 106) mg/dL Calcium (8.4-10.2) mg/dL Total Bilirubin (0.2-1.3) mg/dL AST (14-36) U/L ALT (0-35) U/L Alkaline Phosphatase (38-126) U/L Serum Total Protein (6.3-8.2) g/dL Albumin (3.5-5.0) g/dL Slides for Path Review YES 05/07/24 05/07/24 05/07/24 Range/Units 05:11 06:49 06:49 WBC (3.98-10.04) x10^3/uL RBC (3.93-5.22) x10^6/uL Hgb (11.2-15.7) g/dL Hct (34.1-44.9) % MCV (79.4-94.8) fL MCH (25.6-32.2) pg MCHC (32.2-35.5) g/dL RDW (11.7-14.4) % Plt Count (182-369) x10^3/uL MPV (9.4-12.3) fL Sodium 137 (135-145) mmol/L Potassium 3.8 (3.5-5.1) mmol/L Chloride 93 L (98-107) mmol/L Carbon Dioxide 38 H (22-30) mmol/L Anion Gap 9.8 (5-15) MEQ/L BUN 21 H (7-17) mg/dL Creatinine 0.91 (0.52-1.04) mg/dL Estimated GFR 69.2 ML/MIN Glucose 102 (74-106) mg/dL POC Glucometer 94 94 (74 to 106) mg/dL Calcium 9.4 (8.4-10.2) mg/dL Total Bilirubin 0.30 (0.2-1.3) mg/dL AST 20 (14-36) U/L ALT 16 (0-35) U/L Alkaline Phosphatase 79 (38-126) U/L Serum Total Protein 5.3 L (6.3-8.2) g/dL Albumin 3.2 L (3.5-5.0) g/dL Slides for Path Review 05/07/24 Range/Units 11:34 WBC (3.98-10.04) x10^3/uL RBC (3.93-5.22) x10^6/uL Hgb (11.2-15.7) g/dL Hct (34.1-44.9) % MCV (79.4-94.8) fL MCH (25.6-32.2) pg MCHC (32.2-35.5) g/dL RDW (11.7-14.4) % Plt Count (182-369) x10^3/uL MPV (9.4-12.3) fL Sodium (135-145) mmol/L Potassium (3.5-5.1) mmol/L Chloride (98-107) mmol/L Carbon Dioxide (22-30) mmol/L Anion Gap (5-15) MEQ/L BUN (7-17) mg/dL Creatinine (0.52-1.04) mg/dL Estimated GFR ML/MIN Glucose (74-106) mg/dL POC Glucometer 112 H (74 to 106) mg/dL Calcium (8.4-10.2) mg/dL Total Bilirubin (0.2-1.3) mg/dL AST (14-36) U/L ALT (0-35) U/L Alkaline Phosphatase (38-126) U/L Serum Total Protein (6.3-8.2) g/dL Albumin (3.5-5.0) g/dL Slides for Path Review Tracing 1 Attestation: I have reviewed this EKG and interpreted as documented below. EKG Narrative: ECG 05/07/2024: Sinus tachycardia at 120 bpm. Old IMI. PRWP. IVCD. QT 0.388, QTc 0.547. Multi-Disciplinary Progress Notes: Multi-Disciplinary Progress Notes 05/07/24 13:14 Case Management Note by Maddy Napier [facility] WILL SEND WHEELCHAIR VAN OVER FOR PATIENT AT 1600 Initialized on 05/07/24 13:14 - END OF NOTE 05/07/24 10:37 Case Management Note by Maddy Napier PATIENT CONTINUES TO PLAN TO TRANSITION BACK TO [facility] TODAY TO FINISH HER REHAB STAY. SHE DENIES THE NEED FOR ME TO CALL ANY FAMILY FOR HER. IF PATIENT DOES NOT RETURN TO [facility] TODAY 05/07- SHE WILL NEED TO STAY THRU THE WEEKEND SO AN AUTH EXTENSION CAN BE GRANTED ON FRIDAY Initialized on 05/07/24 10:37 - END OF NOTE 05/06/24 14:41 Physical Therapy Note by Reg(L#[id number]),Florecita PT. WAS SEEN BY P.T. THIS P.M. REPORTS NO C/O PN. STILL REPORTS LES WEAK AND TREMORING W/ WB. REPORTS SHE SLEPT BETTER LAST NIGHT. PT. CONT. ON 2L O2. NOTED 3+ PITTED EDEMA IN FEET . TUBIGRIP SOCKS STILL ON LES BUT HAD MOVED OUT OF PLACE W/ DEMARCATION AROUND LLS AND ANKLES. OPTED TO WRAP LES W/ UNNA BOOT FOR COMPRESSION. APPLIED BARRIER OINTMENT TO BILATERAL LLS AND FEET, DRESSED W/ GELOCAST AND COBAN FOR COMPRESSION. PERFORMED SIT TO STAND W/ SBA. O2 SATS 93% ON 2L AND HR 123. PT. AMBULATED ~ 30' W/ ROLLATOR 2 L O2 AND MIN ASSIST - NOTED SIGNIFICANT LE TREMORING AND PT. HAD TO USE ROLLATOR SEAT TO REST D/T LE WEAKNE SS. PT. CUED TO SLOW DOWN TURN TO SIT AND HAD TO LOCK ROLLATOR FOR HER. PT. AMBULATED BACK TO SIDE OF BED W/ ROLLATOR AND MIN ASSIST. LE TREMORING STILL NOTED. PT. GIVEN V.C. FOR PURSED LIP BREATHING. PERFORMED SEATED LE EX'S OF LAQS, MARCHES, AND ANKLE PUMPS. ABLE TO SCOOT OT HEAD OF BED W/ SBA. DID NOT WANT TO SIT IN CHAIR. COUGHED NOTED OFTEN THROUGHOUT RX. ADVISED PT. TO SIT IN CHAIR FOR DINNER TO PROMOTE IMPROVED LUNG FUNCTION. PLAN IS TO D/C TO SNF TO CONT. REHAB WHEN STABLE. WILL CONT. P.T. 5X/WK UNTIL D/C. Initialized on 05/06/24 14:41 - END OF NOTE Assessment & Plan (1) CHF exacerbation Current Visit: Yes Status: Acute Qualifiers: Heart failure type: combined systolic and diastolic Qualified Code(s): I50.43 - Acute on chronic combined systolic (congestive) and diastolic (congestive) heart failure Assessment & Plan: Compensated. Has diuresed 19 lbs. Spironolactone 25 mg daily and Entresto 24/26 mg BID both started since initial consult. Metoprolol succinate continued. Change IV furosemide to torsemide 40 mg by mouth daily. Continue to follow daily weights. Follow-up with a local tube coverer. BMP in one week. Code(s): I50.9 - HEART FAILURE, UNSPECIFIED (2) Tachycardia Current Visit: Yes Status: Acute Assessment & Plan: Review of her ECGs an day of consult and today consistent with sinus tachycardia. Atrial activity does not march out as atrial tachycardia with 2:1 AV block. This is most likely due to her severe COPD and anemia. Will need to follow up with a local tube coverer for this issue also. If her HR persists at 120 bpm with improvement in her hemoglobin, would recommend an evaluation by an government affairs fellow. Code(s): R00.0 - TACHYCARDIA, UNSPECIFIED (3) Coronary atherosclerosis Current Visit: Yes Status: Chronic Qualifiers: Coronary Disease-Associated Artery/Lesion type: [place] artery [place] vs. transplanted heart: [place] heart Assessment & Plan: No angina. Aspirin being held pending endoscopic procedures due to the severity of her anemia at presentation. Continue metoprolol. Code(s): I25.10 - ATHSCL HEART DISEASE OF [place] CORONARY ARTERY W/O ANG PCTRS (4) Long QT interval syndrome Current Visit: Yes Status: Acute Assessment & Plan: Persists. Secondary to amiodarone therapy (200 mg twice daily for the past 3 months. Will continue to hold amiodaroone pending an evaluation from a local tube coverer. Code(s): I45.81 - LONG QT SYNDROME (5) Hypothyroidism Current Visit: Yes Status: Acute Assessment & Plan: Adjustiment of supplementation as per primary service. Code(s): E03.9 - HYPOTHYROIDISM, UNSPECIFIED - Encounter Encounter: "The entirety of this encounter was performed via Telemedicine using audio and visual " Case discussed with Linda Spivey NP.
[2024-05-07 15:34] VITALS: O2SAT 95
== END 2024-05-07 16:08 | DRG 292 ==
LOC: ED 12:11 → MED SURG 17:12 → OBSVTOIN 05-04 19:51
PROVIDERS: ADMIT Internal Medicine; ATTEND Internal Medicine
DX: I11.0 Hypertensive heart disease with heart failure (principal); Z68.41 Body mass index [BMI] 40.0-44.9, adult; I50.9 Heart failure, unspecified; E11.9 Type 2 diabetes mellitus without complications; D64.9 Anemia, unspecified; Z59.86 Financial insecurity; Z59.82 Transportation insecurity; E66.01 Morbid (severe) obesity due to excess calories; R00.0 Tachycardia, unspecified; E03.9 Hypothyroidism, unspecified; E87.6 Hypokalemia; R60.0 Localized edema; Z79.899 Other long term (current) drug therapy; J44.9 Chronic obstructive pulmonary disease, unspecified; Z99.81 Dependence on supplemental oxygen
CPT/HCPCS: 29580; 36000; 36415; 71045; 80053; 82607; 82728; 82746; 82947; 83036; 83540; 83550; 83735; 83880; 84132; 84443; 84484; 85025; 85027; 85610; 93005; 93041; 93268; 93306; 94640; 94760; 94762; 96374; 97110; 97161; 97530; 99285; G0378; J1650; J1940; A9270-GY